=== PATIENT | female | born 1970 | race Caucasian/White ===

== ENCOUNTER 2019-04-19 17:52 | Emergency (ER) | payer BC, SELFPAY ==
--- NOTE | ~2019-04-19 | XR_ITS ---
EXAMINATION: XR ankle LT 2V DATE: 04/19/2019 18:29 INDICATION: Left ankle pain TECHNIQUE: Two views of the left ankle were obtained. COMPARISON: None. FINDINGS: There is subtle irregularity of the tip of the lateral malleolus. Adjacent soft tissue swel ling is noted. The ankle mortise is intact. There is a plantar calcaneal enthesophyte. IMPRESSION: 1. Possible nondisplaced oblique fracture of the medial malleolus below the level of the tibial plafo nd. Reviewed, dictated and finalized at location A. RY MACHINE OPERATOR IMPRESSION: 1. Possible nondisplaced oblique fracture of the medial malleolus below the lev el of the tibial plafond.
--- NOTE | ~2019-04-19 | XR_ITS ---
EXAMINATION: XR tibia fibula LT 2V INDICATION: Left leg pain, initial encounter TECHNIQUE: Two views of the left tibia and fibula are obtained. COMPARISON: None available FINDINGS: There is an acute, traumatic, closed, oblique, mildly comminuted fracture involving the pro ximal shaft of the left fibula. The remaining osseous structures are normal. Soft tissue swelling klaus rounds the fracture. IMPRESSION: 1. Acute proximal shaft fracture of the left fibula. Reviewed, dictated and finalized at location A. T ACCOUNTS SUPERVISOR
[2019-04-19 17:56] VITALS: BP 119/67; PULSE 95; RESP 16; TEMP 36.9; O2SAT 98
--- NOTE | 2019-04-19 18:00 | ED.LOWEXIN ---
HPI - Extremity Injury (Lower) General Chief Complaint: Extremity Injury, Lower Stated Complaint: left leg injury Time Seen by Provider: 04/19/19 17:59 Source: patient Mode of arrival: ambulatory Limitations: no limitations History of Present Illness HPI Narrative: The pt is a 48 y/o female who presents to the ED with c/o LLE pain that began 1 hour ago. The pt states that she fell and is now having trouble bearing weight on her lt leg. The pain radiates from her upper lt garcia down to her lt ankle. The pain is present with bending her knee or ankle and is aggravated with walking and weight bearing. She currently rates her pain a 5/10. complaint: other (LLE pain) Onset (ago): hour(s) (1) Severity scale (1-10): 5 Exacerbating factors: weight bearing and other (walking) Other symptoms: none Related Data Allergies Allergy/AdvReac Type Severity Reaction Status Date / Time No Known Allergies Allergy Verified 04/19/19 18:13 Review of Systems Review of Systems: All systems reviewed & are unremarkable except as noted in HPI and below Musculoskeletal: Musculoskeletal: Reports other (LLE pain) PMFSH Past Medical History Medical History (Updated 04/19/19 @ 19:37 by Jayy Marinelli MD) Healthy adult Surgical History Surgical History (Updated 04/19/19 @ 18:10 by Olga Puga) No pertinent past surgical history Social History Social History (Updated 04/19/19 @ 18:10 by Olga Puga) Smoking status: Never smoker Gender identity (if verbalized by the patient): Female Exam Const: General: healthy appearing and no acute distress Nutritional Appearance: well nourished HENMT: Mouth: Yes lip normal and Yes moist mucous membranes Eyes: Conjunctivae: conjunctivae normal Pupils: Equal, round and reactive pupils present Resp: Effort & Inspection: normal respiratory effort Auscultation: clear to auscultation bilaterally Cardio: Rate: regular rate Rhythm: regular rhythm Heart sounds: no murmurs GI: GI Palp: Yes Soft to palpation and No Tenderness to palpation present (GI) Auscultation: normal bowel sounds Back/Spine/Pelvis: Back: other (full ROM) Skin: General skin exam: normal color, dry skin and other (warm) Extrem: Other: swelling over lt lateral malleolus with tenderness and tenderness over proximal fibula Psych: Mental Status: mental status grossly normal Affect: normal affect Course Vital Signs Vital signs: Vital Signs Temperature 36.9 C 04/19/19 17:56 Pulse Rate 95 04/19/19 17:56 Respiratory Rate 16 04/19/19 17:56 Blood Pressure 119/67 04/19/19 17:56 Pulse Oximetry 98 04/19/19 17:56 Temperature 36.9 C 04/19/19 17:56 Pulse Rate 95 04/19/19 17:56 Respiratory Rate 16 04/19/19 17:56 Blood Pressure 119/67 04/19/19 17:56 Pulse Oximetry 98 04/19/19 17:56 Procedures Orthopedic Splinting/Casting Injury #1: Splinting/Casting Date: 04/19/19 Side: left Lower Extremity Injury Location: lower leg Splint: customized in ED OCL: short leg Pre-Procedure Neuro Vascular Exam: normal Post-Procedure Neuro Vascular Exam: normal Other Orthopedic Equipment: crutches MDM - Extremity Injury (Lower) Imaging Data Radiologist's impression: ITS Impressions Ankle X-Ray 04/19/19 18:31 IMPRESSION: 1. Possible nondisplaced oblique fracture of the medial malleolus below the level of the tibial plafond. Tibia/Fibula X-Ray 04/19/19 18:33 IMPRESSION: 1. Acute proximal shaft fracture of the left fibula. Discharge Plan Discharge Clinical Impression: Closed Maisonneuve fracture of left fibula Qualifiers: Encounter type: initial encounter Fracture alignment: nondisplaced Qualified Code(s): S82.865A - Nondisplaced Maisonneuve's fracture of left leg, initial encounter for closed fracture Patient Disposition: Home, Self-Care Condition: Stable Instructions: Leg Fracture (ED) Prescri
== END 2019-04-19 20:06 | disposition home or self-care (01) ==
PROVIDERS: Emergency Provider Emergency Medicine
DX: S82.865A Nondisplaced Maisonneuve's fracture of left leg, initial encounter for closed fracture (principal); W19.XXXA Unspecified fall, initial encounter
CPT/HCPCS: 29515; 73590; 73600; 99284

== ENCOUNTER 2019-08-30 00:56 | Emergency (ER) | payer BC, SELFPAY ==
--- NOTE | ~2019-08-30 | CT_ITS ---
EXAMINATION: CT abdomen pelvis w con EXAM DATE: 08/30/2019 01:59 INDICATION: Left lower quadrant abdominal pain. TECHNIQUE: Spiral CT of the abdomen and pelvis was performed following intravenous injection of 100 m L Omnipaque 350. Axial, coronal and sagittal images were reviewed. The dose-length product (DLP) fo r this examination was 1162.24 mGy-cm. The exposure was tailored according to patient size (auto mA exposure control), and iterative reconstruction (ASIR) was used as additional dose reduction techniqu e. There is no prior study for comparison. FINDINGS: The liver, spleen, adrenal glands and pancreas are unremarkable. There are gallstones with in an otherwise unremarkable gallbladder. No evidence of obstructive biliary disease. Portal and sp lenic veins are patent. Kidneys enhance symmetrically. There is no hydronephrosis. Fibroid uterus . The bladder is unremarkable. There is no retroperitoneal or pelvic lymphadenopathy. There is mild scattered colonic diverticulosis with moderate amount of inflammation of the descending /sigmoid colonic junction, consistent with acute uncomplicated diverticulitis. The appendix is normal . The stomach and small bowel are unremarkable. There is expected amount of colonic stool. No bernie e intraperitoneal gas. The heart is normal in size. There are no pericardial or pleural effusions. The lung bases are unremarkable. There are no osteoblastic or osteolytic lesions identified. IMPRESSION: 1. Acute uncomplicated descending/sigmoid colonic diverticulitis. 2. Fibroid uterus. 3. Cholelithiasis. Reviewed, dictated and finalized at location A.
[2019-08-30 01:00] VITALS: BP 148/86; PULSE 94; RESP 16; TEMP 37.1; O2SAT 98
--- NOTE | 2019-08-30 01:18 | ED.ABDPAIN ---
HPI - Abdominal Pain General Chief Complaint: Abdominal Pain Stated Complaint: lower abd pain Time Seen by Provider: 08/30/19 01:07 Source: RN notes reviewed History of Present Illness HPI narrative: Patient presents emergency department from home for left lower quadrant abdominal pain. States the pain began 1 day ago. The pain is described as sharp and stabbing does not radiate. Denies any associated symptoms. Denies take any previous pain medication. Denies any fevers or chills nausea vomiting diarrhea dysuria Related Data Allergies Allergy/AdvReac Type Severity Reaction Status Date / Time No Known Allergies Allergy Verified 04/19/19 18:13 Review of Systems Review of Systems: Narrative: Gen.: Denies fevers or chills ENT: Denies congestion Respiratory: Denies shortness of breath or cough CV: Denies chest pain or palpitations See HPI denies burning, urgency, frequency or hematuria Musculoskeletal: Denies back pain or muscle pain Neuro: Denies numbness, tingling, weakness or focal weakness Skin: Denies rash Except as documented, all other systems reviewed and negative PMFSH Past Medical History Medical History Healthy adult Left fibular fracture Surgical History Surgical History No pertinent past surgical history Social History Social History Smoking status: Never smoker Gender identity (if verbalized by the patient): Female Exam Narrative: Exam Narrative: APPEARANCE: No acute distress, nontoxic, resting in bed HEENT: Normocephalic, atraumatic, OMM RESPIRATORY: No respiratory distress, clear to auscultation bilaterally with no rhonchi wheezing or rales CARDIOVASCULAR: RRR s murmur ABDOMINAL: Soft, nondistended, tender to palpation left lower quadrant, no tenderness left upper quadrant, right upper quadrant right lower quadrant, no rebound or guarding MUSCULOSKELETAl: Moves all extremities. No clubbing, cyanosis or edema. NEURO: Awake and alert. Following commands, speech normal, no focal deficits SKIN:: Warm, dry. Normal Color PSYCHIATRIC: Normal affect/mood Course Course Emergency Course: Patient states that they are feeling much better at this time. States abdominal pain has improved. Repeat abdominal exam shows the patient's abdomen to be soft with no surgical abdomen present. Discussed with patient results of workup and diagnosis. Discussed need for follow-up with primary care physician, reasons to return to the emergency department in proper use of medication. Patient understands and agrees to current treatment plan. Did discuss with patient CT results showing gallstones. States she is had a colonoscopy by GI specialist and on before Vital Signs Vital signs: Vital Signs Temperature 98.7 F 08/30/19 01:00 Pulse Rate 94 08/30/19 01:00 Respiratory Rate 16 08/30/19 01:00 Blood Pressure 148/86 H 08/30/19 01:00 Pulse Oximetry 98 08/30/19 01:00 Temperature 98.7 F 08/30/19 01:00 Pulse Rate 94 08/30/19 01:00 Respiratory Rate 16 08/30/19 01:00 Blood Pressure 148/86 H 08/30/19 01:00 Pulse Oximetry 98 08/30/19 01:00 MDM - Abdominal Pain MDM Narrative Medical decision making narrative: Patient's abdomen is soft without significant pain or signs of surgical abdomen on serial exams. Lab and x-ray evaluations are reviewed and patient is felt to be a reasonable candidate for outpatient management. Patient was instructed as to limitations of x-ray and laboratory evaluation and encouraged to return to ED or primary physician for repeat exam in 12 hours if continued or worsening pain Lab Data Result diagrams: 08/30/19 01:25 08/30/19 01:25 Labs: Lab Results 08/30/19 08/30/19 08/30/19 Range/Units 01:25 01:25 01:33 WBC 14.4 H (4.5-10.0) K/mm3 RBC 4.60 (4.2-5.4) M/mm3
[2019-08-30 01:31] LABS: Basophils Absolute Auto 0.1 K/mm3 (0.0-0.1); Basophils Percent Auto 0.4 % (0.2-1.2); Eosinophils Absolute Auto 0.2 K/mm3 (0-0.3); Eosinophils Percent Auto 1.2 % (0-4.4); Hematocrit 43.2 % (37.0-47.0); Hemoglobin 14.5 g/dL (12.0-15.0); Immature Granulocyte Absolute 0.04 K/mm3 (0.00-0.031); Immature Granulocyte Percent A 0.3 % (0-0.5); Lymphocytes Absolute Auto 2.47 K/mm3 (0.9-3.2); Lymphocytes Percent Auto 17.2 % (18.3-44.2); Mean Corpuscular HGB Conc 33.6 g/dl (32-36); Mean Corpuscular Hemoglobin 31.5 pg (26-34); Mean Corpuscular Volume 93.9 fl (80-100); Mean Platelet Volume 11.2 fl (7.4-10.4); Monocytes Absolute Auto 1.2 K/mm3 (0.1-0.6); Monocytes Percent Auto 8.1 % (2.6-8.5); Neutrophils Absolute Auto 10.5 K/mm3 (1.3-6.7); Neutrophils Percent Auto 72.8 % (45.5-73.1); Platelet Count Result 223 k/mm3 (150-375); Red Cell Distribution Width 13.4 % (11.5-14.5); White Blood Count 14.4 K/mm3 (4.5-10.0)
[2019-08-30] MEDS: SODIUM CHLORIDE 0.9% IV 1,000 ML 999 ML IV CONT (01:37)
[2019-08-30] MEDS: KETOROLAC 30 MG/ML VIAL (*BKC) IV PUSH (01:38)
[2019-08-30 01:44] LABS: Alanine Aminotransferase 25 U/L (4-35); Albumin Level 4.2 g/dL (3.5-5.1); Alkaline Phosphatase 78 U/L (38-126); Aspartate Amino Transferase 25 U/L (14-36); Bilirubin,Total 0.3 mg/dL (0.2-1.3); Blood Urea Nitrogen 16 mg/dL (7-17); Calcium 8.8 mg/dL (8.4-10.2); Carbon Dioxide 28 mmol/L (22-30); Chloride 104 mmol/L (98-107); Estimated Glomerular Filt Rate > 60; Glucose 130 mg/dL (65-105); Lipase 63 U/L (23-300); Sodium 136 mmol/L (137-145)
[2019-08-30 01:58] LABS: Add Urine Microscopic? YES; Appearance Urine Clear (Clear); Bacteria Urine Trace /hpf; Bilirubin Urine Negative (Negative); Blood Urine Negative (Negative); Color Urine Yellow (Yellow); Glucose Urine UA Negative (Negative); Ketones Urine Negative (Negative); Leukocyte Esterase Ur 2+ LEU/UL (Negative); Mucus Urine Rare /lpf; Nitrate Urine Negative (Negative); Protein Urine Negative (Negative); Specific Grav Ur 1.014 (1.001-1.035); Squamous Epithelial Cell Urine Many /hpf (Few); Urobilinogen Urine Negative mg/dL (<2.0)
[2019-08-30 02:54] VITALS: BP 145/66; PULSE 85; RESP 18; O2SAT 96
[2019-08-30] MEDS: AMOXICILLIN/CLAVULANATE K 875-125 MG TAB 1 TABLET PO (02:54)
== END 2019-08-30 02:56 | disposition home or self-care (01) ==
PROVIDERS: Emergency Provider Emergency Medicine
DX: K57.32 Diverticulitis of large intestine without perforation or abscess without bleeding (principal)
CPT/HCPCS: 36415; 74177; 80053; 81001; 81025; 83690; 85025; 87086; 96361; 96374; 99284; A9270; J1885; J7030; Q9967

== ENCOUNTER → 2023-01-08 14:17 | Outpatient (CLI) | payer BC, SELFPAY ==
--- NOTE | ~2023-01-08 | MR_ITS ---
MRI of the left ankle Clinical history: Instability Technique: Coronal proton-density and proton-density fat-sat images, axial proton-density and proton- density fat-sat images, and sagittal proton-density and proton-density fat-sat images were acquired. Findings: Syndesmotic ligaments are intact. Anterior and posterior talofibular ligaments are probably intact, though somewhat thinned. Calcaneofibular ligament is intact. Deltoid ligament is intact. Suggestion of mild thinning of the tibialis posterior tendon, with fluid distention of the tendon she ath. Flexor hallucis longus and flexor digitorum longus tendons are intact. Peroneal tendons are inta ct, mild fluid distention of the tendon sheaths, especially peroneus longus distally. Anterior extens or tendons and Achilles tendon are intact. There is no definite osteochondral lesion of the talar dome. There are minimal degenerative changes a t the tibiotalar joint and subtalar articulations. There is mild degenerative change of the talonavic ular articulation. There are mild degenerative changes of the tarsometatarsal joints. No suspicious b one marrow signal abnormality seen. Plantar fascia is intact. Small tibiotalar joint effusion present. There is mild edematous change in the sinus Tarsi. Impression: Somewhat thickened appearance of the anterior and posterior talofibular ligaments. Findings could ref lect sequela of chronic sprain. No acute ligament injury evident. Tenosynovitis of the tibialis posterior and peroneal tendon sheaths. Mild thinning of the tibialis posterior tendon, which could reflect atrophic type partial tearing. Mild polyarthritis at the ankle/hindfoot, as detailed above. Nonspecific edematous change in the sinus Tarsi. Correlate for sinus Tarsi syndrome. Reviewed, dictated and finalized at [facility]. AL WORK INSTRUCTOR Impression: Somewhat thickened appearance of the anterior and posterior talofibular ligamen ts. Findings could reflect sequela of chronic sprain. No acute ligament injury evident. Tenosynovitis of the tibialis posterior and peroneal tendon sheaths. Mild thinning of the tibialis posterior tendon, which could reflect atrophic ty pe partial tearing. Mild polyarthritis at the ankle/hindfoot, as detailed above. Nonspecific edematous change in the sinus Tarsi. Correlate for sinus Tarsi synd bria.
== END ==
PROVIDERS: PCP Internal Medicine Infectious Disease; Visit Provider Orthopaedic Surgery
DX: M25.372 Other instability, left ankle (principal); S93.492A Sprain of other ligament of left ankle, initial encounter; X58.XXXA Exposure to other specified factors, initial encounter
CPT/HCPCS: 73721

== ENCOUNTER 2024-01-27 00:09 | Day surgery (SDC) | payer BC, SELFPAY ==
--- NOTE | 2024-01-15 12:37 | P.HP_ITS ---
H&P: HPI History of Present Illness Date/Time: 01/15/24 12:37 Chief Complaint: Left foot and ankle pain, deformity Narrative: 53-year-old woman who injured her left ankle 3 years ago. Sustained fibular fracture with injury to the medial soft tissues. Progressive flatfoot deformity and pain. Difficulty activity and weight-bearing. Has failed treatment with bracing, custom brace, activity modifications, therapy, anti-inflammatories. Presents for operative treatment. Review of Systems Constitutional: Constitutional: Denies fever(s) Eyes: Eyes: Denies blurry vision ENT: Reports Normal hearing present Cardiovascular: Cardiovascular: Denies chest pain and Denies dyspnea Respiratory: Respiratory: Denies dyspnea and Denies wheezing Gastrointestinal: Gastrointestinal: Denies abdominal pain Genitourinary: Genitourinary: Denies urinary urgency Musculoskeletal: Musculoskeletal: Reports as per HPI and Denies numbness Integumentary/Breasts: Skin/Breast: Denies changing lesions and Denies sores Neurologic: Reports Normal hearing present, Denies behavioral changes, Denies confusion, Denies numbness and Denies convulsions Psychiatric: Psychiatric: Denies behavioral changes, Denies confusion and Denies hallucinations Endocrine: Endocrine: Denies heat intolerance Hematologic/Lymphatic: Hematologic/Lymphatic: Denies easy bleeding Allergic/Immunologic: Allergic/Immunologic: Denies wheezing PMFSH Past Medical History Medical History Healthy adult Left fibular fracture Pes planovalgus Posterior tibial tendon dysfunction (PTTD) of left lower extremity Spring ligament tear Surgical History Surgical History No pertinent past surgical history Family History Family History Mother Asthma Diabetes mellitus Father Parkinsons Social History Social History Smoking status: Never smoker Lack of Transportation: No Lack of Food: Never True Current Housing: I Have Housing Concerned About Future Housing: No Difficulty Paying Gas/Electric Bills: No Difficulty Paying for Meds: No Currently Unemployed: No Education: Master's Degree or Higher Difficulty w/ Childcare or Family Care: No Gender identity (if verbalized by the patient): Female Meds Home Medications and Allergies Home Medications Medication Instructions Recorded Confirmed Type No Home Medications 09/11/21 12/24/23 History Allergies Allergy/AdvReac Type Severity Reaction Status Date / Time No Known Allergies Allergy Verified 12/24/23 07:42 Exam Const: General: healthy appearing; No in distress or confusion Orien tation/consciousness: oriented to person, oriented to place, oriented to time and No confusion HENMT: Head: normal to inspection, normocephalic and atraumatic Eyes: Conjunctivae: conjunctivae normal Sclera: sclerae normal Neck: Neck: supple and nontender Resp: Effort & Inspection: normal respiratory effort and no audible wheezes Cardio: Rate: regular rate Rhythm: regular rhythm Skin: General skin exam: no rashes or lesions noted Neuro: General: oriented to person, oriented to place, oriented to time and No confusion Extrem: Right upper extremity: normal to inspection Left upper extremity: normal to inspection Right lower extremity: normal to inspection, normal capillary refill, ankle Details: no tenderness and foot Details: vascular exam Details: normal capillary refill and motor-sensory exam Details: light-touch normal; no tenderness Left lower extremity: ankle Details: tenderness Location: of the medial malleolus, swelling Details: medially (mild) and abnormal ROM ( ankle DF 0?, PF 40?, Inv 15?, Ev 20?) and foot Details: abnormal to inspection ( Moderate flexible pes planovalgus, moderate heel valgus with standing) Details: a deformity; not erythematous, tenderness ( posterior tibial tendon and medial naviculum) Location: of the medial foot, toes with normal ROM, vascular exam Details: dorsalis pedis pulse present and normal capillary refill and motor-sensory exam light-touch normal Psych: Affect: normal affect Assessment and Plan Assessment and plan (1) Spring ligament tear: Qualifiers: Encounter type: subsequent encounter Laterality: left Qualified Code (s): S93.692D - Other sprain of left foot, subsequent encounter Code(s): S93.699A - Other sprain of unspecified foot, initial encounter Status: Acute (2) Posterior tibial tendon dysfunction (PTTD) of left lower extremity: Code(s): M76.822 - Posterior tibial tendinitis, left leg Status: Acute Assessment and Plan: Discussed nonoperative and operative treatment options with the patient. Risks and benefits of each as well as alternatives were reviewed. All of the patient's questions were answered. The risks of surgery reviewed including but not limited to: Neurovascular damage, wound complication, infection, blood clot, pulmonary embolus, stroke, myocardial infarction, and anesthetic risks up to and including . Continued pain and possible dysfunction were explained. Specific risks of the procedure including later recurrence of deformity. No guarantees were offered. If hardware used, discussed risk of failure/ breakage and possible need for removal. If complications occur, the patient understands the need for further treatment, possible further surgery. Patient verbalizes understanding and wishes to proceed. PLAN: Left foot reconstruction with posterior tibial and spring ligament reconstruction, double calcaneal osteotomy, Achilles tendon lengthening (3) Pes planovalgus: Code(s): Q66.6 - Other congenital valgus deformities of feet Status: Acute (4) Left ankle instability: Code(s): M25.372 - Other instability, left ankle Status: Acute
[2024-01-21 13:37] VITALS: BMI 30.5
--- NOTE | 2024-01-21 13:50 | PC.NURSE ---
Report to the Outpatient Waiting Room, entrance under the green pavilion located off [facility], at time _0600am on date __01/27/24 . Planned Procedure Time: ___07:30am .? Time changes happen often and if your time is changed the preop area will call you the afternoon before. - You and your visitor will be asked to self-screen and do not enter if you have any COVID symptoms. Please call surgeon if you need to reschedule. - A mask is optional within the hospital at this time. Patients may have clear liquids (water, carbonated beverages, clear teas, apple juice) until 3 hours prior to surgery with a maximum of 20 ounces. - No food from midnight until time of surgery and no smoking. This includes no chewing gum, candy or mints.(04:30am) Take only the following medications with a SIP of water on the morning of surgery: _None DO NOT STOP ANY OF YOUR OTHER PRESCRIPTION MEDICATIONS PRIOR TO SURGERY EXCEPT THE FOLLOWING Medications to discontinue per physician Hold all vitamins, supplements, herbs and probiotics for 3 days prior per Anesthesia. Date to take last dose___01/23/24 Please no make-up, nail thai, hairspray, perfume, deodorant, or body powder the day of surgery.? No jewelry (including any body piercings) or valuables the day of surgery, leave them at home.? Please take a shower or bath the night before, or the morning of, surgery with an antibacterial soap.? Wear comfortable, loose fitting clothing.? - Jewelry must be removed prior to entering the operating room.? Rings and piercings that are not removed may be cut off. - The hospital will not accept responsibility for valuables.? - Please leave all valuables, including medications, at home the day of surgery. If you are going home after surgery, a licensed feeder driver must drive you home.? - NO public transportation without another adult if you receive anesthesia. - We recommend that an adult stay with you for 24 hours following discharge. - We also recommend that you do not drive, make important decision, drink alcoholic beverages, or take any drugs that were not prescribed by your health care provider for at least 24 hours after your discharge time. Follow any additional instructions given to you from your surgeon. Telephone instructions given to __Patient and asked if any additional questions and then verbalized understanding. Patient advised to call surgeon office or pre surgery nurse liaison [phone] if any additional questions.
[2024-01-27] VITALS (8 sets, daily range): BP systolic 127–141; BP diastolic 77–86; PULSE 85–99; RESP 12–16; TEMP 36.2–37; O2SAT 96–100
--- NOTE | ~2024-01-27 | XR_ITS ---
EXAMINATION: XR surgery orthopedic DATE: 01/27/2024 10:06 INDICATION: Left ankle instability. TECHNIQUE: 7 intraoperative fluoroscopic views of left foot were obtained. I wasn't present. Fluorosc opy exposure time was 39 seconds. COMPARISON: Left foot radiographs 12/24/2023 FINDINGS: Alignment is normal. No fracture. There are osteotomies of the calcaneus with internal fixa tion with screws and staple. There is mild midfoot osteoarthritis. Skin sofi are noted. IMPRESSION: 1. Osteotomies of the calcaneus with internal fixation. Reviewed, dictated and finalized at location A. ER INTERN
[2024-01-27] MEDS: ACETAMINOPHEN 500 MG TABLET 1000 MG PO (06:40)
[2024-01-27] MEDS: KETOROLAC 15 MG/ML VIAL (*BKC) IV PUSH (06:40)
[2024-01-27] MEDS: LACTATED RINGERS 1,000 ML 30 ML IV CONT ×2 (06:40→10:29)
--- NOTE | 2024-01-27 06:48 | WPDHPUPDATE1 ---
History and Physical Update Update Date/Time: 01/27/24 06:48 History and Physical has been reviewed, including an updated exam of the patient. There are NO changes in the patient's condition. Risks, benefits, and alternatives have been discussed and questions answered. Patient agrees to proceed with procedure.
--- NOTE | 2024-01-27 07:06 | WPDANESEPPF ---
Anes - Initial Pre Proc Eval Procedure: Operation Date: 01/27/24 07:30 Proposed Procedures p Left Double Calcaneal Osteotomy, Posterior Tibial and Spring Ligament Reconstruction, Achilles Lengthening - Michael Drummond MD Date/Time: 01/27/24 07:06 Surgeon: Michael Drummond MD Pre Op Diagnosis: Lt Posterior Tibial Tendon Dysfunction Patient Data Age: 53 Gender: F Height: 1.85 m Weight: 105 kg Last Vital Signs Temp 97.2 F L 01/27/24 06:40 Pulse 87 01/27/24 06:40 Resp 14 01/27/24 06:40 BP 127/84 01/27/24 06:40 Pulse Ox 99 01/27/24 06:40 O2 Del Method Room Air 01/27/24 06:40 Allergies Allergy/AdvReac Type Severity Reaction Status Date / Time No Known Allergies Allergy Verified 01/27/24 06:55 Home Medications Medication Instructions Recorded Confirmed Type B.animalis-B.bifidum-B.infantis-B.longum 1 tablet PO DAILY 01/21/24 01/27/24 History 10 mg-15 mg tablet,delay rel albuterol sulfate 90 mcg/actuation 1 inh inhalation QID PRN sob 01/21/24 01/21/24 History aerosol inhaler magnesium citrate 125 mg capsule 125 mg PO DAILY 01/21/24 01/27/24 History multivitamin with minerals 1 tablet PO DAILY 01/21/24 01/27/24 History vit I38-pebzosvwf factor-folic 1 tablet PO DAILY 01/21/24 01/27/24 History acid cmb#2 500 mcg-20 mg-800 mcg tablet zinc 100 mg tablet 100 mg PO DAILY 01/21/24 01/27/24 History Patient hx anesthesia problems: none Family hx anesthesia problems: none Results Review: All pre-operative results and documents have been reviewed as part of the pre-operative evaluation. [facility] Past Medical History Medical History Healthy adult Left fibular fracture Pes planovalgus Posterior tibial tendon dysfunction (PTTD) of left lower extremity Spring ligament tear Surgical History Surgical History No pertinent past surgical history Family History Family History Mother Asthma Diabetes mellitus Father Parkinsons Social History Social History Smoking status: Never smoker Alcohol use details: 1 per month Substance use: never Lack of Transportation: No Lack of Food: Never True Current Housing: I Have Housing Concerned About Future Housing: No Difficulty Paying Gas/Electric Bills: No Difficulty Paying for Meds: No Currently Unemployed: No Education: Master's Degree or Higher Difficulty w/ Childcare or Family Care: No Living arrangements: with family Additional living arrangements comments: [place] Gender identity (if verbalized by the patient): Female Spiritual care concerns: No Anes - Eval Final PreProcedure Day of Procedure 01/27/24 07:06 Patient weight: obese Heart: regular rate and rhythm Lungs: clear to auscultation Airway: Mallampati scale Neurological: alert and oriented Last oral intake: >/= 8 hours ASA classification: II Emergent: no Anesthetic plan: proceed Anesthesia type and monitoring: general LMA and standard monitoring Results Review: All pre-operative results and documents have been reviewed as part of the pre-operative evaluation. Asthma, stable of recent. Pt active w no cp or sob. All R/B/A discussed of PNB/GA w pt and her spouse in preop 10. They understand and agree to proceed. Informed Consent: The patient's anesthetic plan and its attendant risks and benefits were discussed with the patient/family/POA. Questions were solicited and answers provided to the satisfaction of the patient/family/POA.
--- NOTE | 2024-01-27 07:36 | WPDANESPNB ---
Anes - Peripheral Nerve Block Date/Time: 01/27/24 07:36 I have discussed with the patient/family/POA the placement of a peripheral nerve block for post-operative pain management, including associated risks, benefits, complications, and side effects. Alternative methods of post-operative analgesia were detailed. Questions were solicited and answers provided to the satisfaction of the patient/family/POA. Time-Out: A pre-procedural Time-Out was completed immediately before starting the procedure and confirmed: Patient Identification, Site, Procedure, Patient Position and the Availability of Requisite Equipment. Clinical Indications: Acute post-operative pain management requested by the operative surgeon. Nerve Block Insertion Note Anes-nerve block: posterior fossa sciatic left and adductor canal left Patient position: supine Skin prep: chlorhexidine Needle: 22 gauge, stimulating, insulated echogenic needle. Needle length: 80 mm Technique: ultrasound Injectate: other (Bupiv 0.5%, 20 mls total, 10 ml post sciatic, 10 mls adductor canal. ) Observations: tolerated well Complications: none Procedure start time:: 720 Procedure end time:: 728
[2024-01-27] MEDS: ceFAZolin 2 GM/D5W 50 ML 2 GM/50 ML BAG IVPB (07:39)
[2024-01-27] MEDS: BUPivacaine HCL 0.5% 10 ML AMP 20 ML INFILTRATE (08:04)
[2024-01-27 08:48] LABS: BEDSIDEPREGUCG Negative (Negative)
--- NOTE | 2024-01-27 10:46 | P.OP_ITS ---
Procedure Note - Detailed Date of Procedure 01/27/24 Pre-op Diagnosis Lt Posterior Tibial Tendon Dysfunction, spring ligament rupture, pes [place] valgus. 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 Her fracture has healed but she has gone on to develop progressive pes [place] valgus of the foot collapse of the arch pain. No improvement conservative treatment including physical therapy, bracing and inserts. Presents for operative treatment. Findings Spring ligament disruption hindfoot instability. Description of Procedure Patient identified in the preoperative holding. Informed consent given. Operative extremity marked. Patient received intravenous antibiotics And a regional anesthetic block by the anesthesia team. Patient brought to the operating room where underwent general anesthetic by anesthesia team. Positioned supine on the operating room table with a soft bump under the ipsilateral hip. Left foot and ankle prepped and draped usual sterile surgical fashion using a ChloraPrep skin solution. Time-out performed confirming the patient, site of the surgery and the plan. Foot ankle exsanguinated and a thigh tourniquet inflated to 250 mmHg. The calcaneus was addressed 1st. An oblique incision made over the lateral posterior aspect with a 15 blade knife. Careful dissection to isolate the neurovascular elements which were protected. Lateral side of the calcaneal tuberosity was dissected and fluoroscopy was used to guide the osteotomy site. Sagittal saw used to make a lateral to medial osteotomy which was completed medially with osteotomes. Posterior tuberosity fragment was then translated medially 1 cm provisionally pinned. Image intensification confirmed alignment fixation was achieved with 4.75 mm cannulated headless screws x2. Image intensification confirmed position and alignment. wound i rrigated and the soft tissue closed with 3-0 Monocryl interrupted suture. Skin repaired with sofi. We then addressed the anterior calcaneus. Longitudinal incision made from the sinus tarsi to the anterior calcaneal tuberosity with 15 blade knife. Hemostasis controlled electrocautery. Peroneal tendons were retracted plantar word in the lateral anterior calcaneus was dissected free. Image intensification again confirmed our osteotomy site and anterior osteotomy was made from lateral to medial leaving a medial cortical hinge of bone. This was then wedged laterally and checked with image intensification for reduction of the talonavicular joint. The wedge was measured an 8 mm allograft bone wedge was then impacted into place and fixed with 11 mm staple. Wound irrigated fascia repaired with 3-0 Monocryl interrupted suture. Subcutaneous tissue repaired with 3-0 Monocryl interrupted suture and skin repaired with sofi. Achilles tendon was then addressed. With the ankle in a dorsiflexed position release of the Achilles at 2 locations performed with 15 blade knife. Good release of the Achilles and increase in ankle dorsiflexion noted. Wounds irrigated and closed with 3-0 Monocryl interrupted suture and sofi. Medial aspect was then addressed. Curvilinear incision made from the medial malleolus to the navicular with 15 blade knife. Hemostasis with. Posterior ti bial tendon sheath was incised in line with skin incision posterior tibial tendon was noted to be intact but was stretched out. Retracting the tendon dorsally the spring ligament was noted to be Torn. 2.75 drill hole was placed in the sustentaculum confirmed the intensification internal brace was anchored into sustentaculum. drill hole placed from dorsal plantar in the medial navicular and the limbs of the internal brace were then brought dorsally and plantar wart through the navicula. Talonavicular joint reduced and the internal brace fixed with the SwiveLock anchor. Image intensification confirmed final reduction of foot and placement of the hardware. the posterior tibial tendon was then advanced into the navicula with 2. Fiber suture to restore tension. Wounds irrigated and the sheath was closed with 0 Vicryl interrupted suture. Subcutaneous tissue repaired with 3-0 Monocryl suture and skin repaired with sofi. Sterile dressings applied follow-up by splint. Patient awoke from anesthesia extubated and taken to recovery room stable condition. All sponge needle and instrument counts were correct at the end the case. Implants 4.75 mm cannulated headless screw x2, internal brace x1. 11 mm dynamic staple. Estimated Blood Loss 10 Tourniquet Time Total Tourniquet Time: 142 Drains No Packing No Pathology None sent Complications None Condition Stable Disposition PACU [facility] Billing Surgery - Charge Forward: Surgery Billing ([id number], [id number], [id number], [id number], [id number])
[2024-01-27] MEDS: ONDANSETRON INJ 4 MG/2 ML VIAL IV PUSH (11:00)
[2024-01-27] MEDS: diphenhydrAMINE HCl INJ 50 MG/ML VIAL 12.5 MG IV PUSH (12:23)
== END 2024-01-27 12:50 | disposition home or self-care (01) ==
PROVIDERS: PCP Internal Medicine Infectious Disease; Visit Provider Orthopaedic Surgery
PROC: (CPT 28300; principal; 2024-01-27 07:30)
DX: S93.492A Sprain of other ligament of left ankle, initial encounter (principal); X58.XXXA Exposure to other specified factors, initial encounter; M67.972 Unspecified disorder of synovium and tendon, left ankle and foot; M21.072 Valgus deformity, not elsewhere classified, left ankle; G89.18 Other acute postprocedural pain; Z79.51 Long term (current) use of inhaled steroids; E66.9 Obesity, unspecified; Z68.30 Body mass index [BMI] 30.0-30.9, adult; Z87.81 Personal history of (healed) traumatic fracture
CPT/HCPCS: 28300; 28200; 27695; 27685; 64445; 64447; 99199; A9270; C1713; J0690; J1100; J1200; J1885; J2003; J2250; J2405; J2704; J3010; J7120

== ENCOUNTER 2024-07-06 08:19 | Outpatient (CLI) | payer BC, SELFPAY ==
--- OUTSIDE RECORDS SUMMARY | 2024-07-06 08:31 | XMS_ITS | Clinical Summary ---
Author Organization [facility] Address [address] [place] [address] Care Team Providers Care Clinical Laboratory Science Professor Name Role Phone Tashi Reilly MD Primary Care Provider [phone] Source Comments [facility],non-owned Affiliates and Associated Physician Practices is amultiple site organization consisting of ambulatory clinics and hospital sitesin [place], [place], [place] and [place]. This disclosure is being madepursuant to the Care Everywhere program and may not contain all information available regarding this patient. Last updated [employer] [facility] Allergies No known active allergies Medications * Be aware that medications may not be up to date on this document. Alwaysverify current medications with the patient. Medication Sig Dispense Quantity Refills Last Filled Start D ate End Date Status MAGNESIUM PO Active Active Problems Problem Noted Date Diagnosed Date Periodic limb movement disorder 12/29/2021 02/14/2023 Overview (02/14/2023): Last Assessment & Plan: We discussed the option of treating her restless legs syndrome. We ordered iron studies (she is still menstruating). Cough variant asthma 10/02/2021 02/14/2023 Overview (02/14/2023): Last Assessment & Plan: She has an albuterol inhaler for occasional use as needed when she is wheezing which is rarely these days once her daughter moved out of the house with her rats. Uterine leiomyoma 04/24/2021 02/14/2023 Urinary frequency 09/01/2020 02/14/2023 Overview (02/14/2023): Last Assessment & Plan: Pre and postvoid urinary bladder volumes were unremarkable. 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 The fibroids might be pressing on her bladder causing some of her symptoms. The trazodone might help her bladder relax a little bit through its anticholinergic side effects. Diverticulitis 08/29/2019 02/14/2023 Overview (02/14/2023): Last Assessment & Plan: Recent colonoscopy was unremarkable. No recent symptoms of diverticulitis. No concerns or complaints. Discussed again importance of high fiber diet. She is to go on low fiber/low fat, liquid diet if diverticulitis symptoms occur and contact us. Pt verbalized understanding. Suspected sleep apnea 09/01/2016 02/14/2023 Overview (02/14/2023): Suspected. Snores, feels unrested when she wakes up. Sleep study negative, but sleep efficiency poor. Last Assessment & Plan: She had a sleep study yesterday which was negative for obstructive sleep apnea. She does snore and has restless legs. Sleep latency was very short, but sleep efficiency was poor. She wakes up easily and has trouble falling back asleep. We discussed all of this today. We reinforced good sleep hygiene. We sent in a trial of trazodone which might help her stay asleep, risks of medication discussed. Class 1 obesity due to exces s calories without serious comorbidity with body mass index (BMI) of 32.0 to 32.9 in adult 09/01/1989 Overview (12/16/2023): Obesity Family History Medical History Relation Name Comments Parkinson's Disease Father Alzheimer's Disease Maternal Grandfather Cancer - Ovarian Maternal Grandmother Diabetes; unknown type Mother Cancer - Skin, Melanoma Paternal Grandfather None Known Paternal Grandmother Relation Name Status Comments Father Alive Maternal Grandfather Maternal Grandmother Mother Alive Paternal Grandfather Paternal Grandmother Social History Tobacco Use Types Packs/Day Years Used Date Smoking Tobacco: Never Passive Smoke Exposure: Never Smokeless Tobacco: Never Tobacco Cessation:Counseling Given: Not Answered Alcohol Use Standard Drinks/Week Comments Yes 0 (1 standard drink = 0.6 oz pur e alcohol) PHQ-2 Answer Date Recorded Patient Health Questionnaire-2 Score 0 12/09/2023 Comments Unknown Sex and Gender Information Value Date Recorded Sex Assigned at Not on file 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 Gender Identity Not on file Sexual Orientation Not on file Last Filed Vital Signs Vital Sign Reading Time Taken Comments Blood Pressure 128/78 12/16/2023 10:39 AM CDT Pulse - - Temperature - - Respiratory Rate - - Oxygen Saturation - - Inhaled Oxygen Concentration - - Weight 88.5 kg (195 lb) 12/16/2023 10:39 AM CDT Height 185.4 cm (6' 1 ) 12/16/2023 10:39 AM CDT Body Mass Index 25.73 12/16/2023 10:39 AM CDT Plan of Treatment Health Maintenance Due Date Last Done Comments COLOGUARD (AGES 45-75) - COLON CA SCREENING [address] COLONOGRAPHY - COLON CA SCREENING 1971 FLEX SIG - COLON CA SCREENING 1971 LIPID TESTING 1971 PAP SMEAR 1971 HIV SCREENING 11/20/1986 HEPATITIS C SCREENING 11/16/1989 DTAP/TDAP/TD VACCINES (1 - Tdap) 11/20/1990 HEPATITIS B VACCINE (1 of 3 - 19+ 3-dose series) 11/20/1990 PNEUMOCOCCAL VACCINE 50+ (1 of 2 - PCV) 11/20/1990 ZOSTER VACCINE (1 of 2) 11/20/2021 MAMMOGRAM 01/17/2023 01/17/2021, 01/02, 12/18/2019, Additional history exists SCREENING FOR DIABETES 02/14/2023 FIT - COLON CA SCREENING 03/26/2023 03/26/2022 COVID-19 VACCINE (3 - 2023- season) 2023 05/21/2020, 04/23/2020 DEPRESSION SCREENING 03/04/2024 03/20/2023 INFLUENZA VACCINE (Season Ended) 2024 11/15/2021, 11/08/2020, 11/13/2019, Additional history exists COLONOSCOPY - COLON CA SCREENING 11/17/2029 11/18/2019 Colorectal Cancer Screening 11/17/2029 HIB VACCINE Aged Out No longer eligi ble based on patient's age to complete this topic HPV VACCINE Aged Out No longer eligi ble based on patient's age to complete this topic MENINGOCOCCAL (Group B) VACCINE SHARED DECISION-MAKING Aged Out No longer eligible based on patient's age to complete this topic MENINGOCOCCAL GROUPS A/C/Y/W VACCINE Aged Out No longer eligible based on patient's age to complete this topic [place] [address] [employer]THE[employer] Member Subscriber Plan / Payer (Ef fective 2018-Present) Name:Micheline Galvan Relation to Subscriber:Self Name:Micheline Galvan Payer ID:[id number] (NAIC) Type:PPO Address: [place] [id number] ANTHEM Care Teams Clinical Laboratory Science Professor Relationship Specialty Start Date End Date Tashi Reilly MD [address] [place] [address] [phone] (work) PCP - General Infectious Disease 02/14/23
--- OUTSIDE RECORDS SUMMARY | 2024-07-06 08:31 | XMS_ITS | Encounter Summary ---
Author Organization [facility] Address [address] [place] [address] Care Team Providers Care Field Application Engineer Name Role Phone Tashi Reilly MD Primary Care Provider [phone] Mary Crump NP Unavailable [phone] Reason for Referral * Consultation (Routine) - Pending Review Specialty Diagnoses / Procedures Referred By Olga bryant Referred To Contact Otolaryngology Diagnoses Tinnitus of both ears Tashi Reilly MD [address] [address] Phone: tel: fax: Jeanette Reese MD [address] [place] [address] Phone: tel: fax: Referral ID Status Reason Start Date Expiration Date Visits Requested Visits Authorized [id number] Pending Review Specialty Services Required 06/10/2024 07/10/2025 12 12 Question Answer Please select the performing region: External Order [171] To provider: JEANETTE REESE [[id number]] # of visits: 12 Comments Please contact patient to schedule an appointment. Thank you. Dr.Joel Reese Encounter Details Date Type Department Care Team (Late st Contact Info) Description 06/10/2024 Telephone [facility] [address] [place] [address] Tashi Reilly MD [address] [place] [address] Social History Tobacco Use Types Packs/Day Years Used Date Smoking Tobacco: Never Smokeless Tobacco: Never Alcohol Use Standard Drinks/Week Comments Yes 0 (1 standard drink = 0.6 oz pur e alcohol) PHQ-2 Answer Date Recorded PHQ-2 Total Score (If total score is 3 or more points, staff should administer the PHQ-9) 0 01/03/2024 Comments No Sex and Gender Information Value Date Recorded Sex Assigned at Not on file 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 Pt states couldn't get her in until August. Referral faxed to . documented in this encounter Plan of Treatment Scheduled Referrals Name Type Priority Associated Diagnoses Order Schedule Ambulatory referral to ENT Outpatient Referral Routine Tinnitus of both ears Expected: 06/10/2024 (Approximate), Expires: 06/10/2025 documented as of this encounter Visit Diagnoses Diagnosis Tinnitus of both ears- Primary Unspecified tinnitus documented in this encounter Care Teams Field Application Engineer Relationship Specialty Start Date End Date Tashi Reilly MD [address] [place] [address] PCP - General 06/01/16 Mary Crump NP [address] [place] [address] Nurse Practitioner Obstetrics and Gynecology 12/17/23 documented as of this encounter
--- OUTSIDE RECORDS SUMMARY | 2024-07-06 08:31 | XMS_ITS | Referral Summary ---
Author Organization [facility] [address] Address [address] [place] [address] Care Team Providers Care Geospatial Program Management Officer Name Role Phone Tashi Reilly MD Primary Care Provider [phone] Mary Crump NP Unavailable [phone] Encounters Date Type Department Care Team Description 06/10/2024 Telephone [facility] [address] [place] [address] [phone] Tashi Reilly MD 06/05/2024 2:30 PM CDT Office Visit [facility] [address] [place] [address] [phone] Mickey Matta NP Tinnitus of both ears (Primary Dx); Bruxism (teeth grinding); Class 1 obesity due to excess calories without serious comorbidity with body mass index (BMI) of 30.0 to 30.9 in adult; Need for hepatitis B screening test 05/16/2024 Results Follow-Up [facility] [address] [place] [phone] Tashi Reilly MD 05/13/2024 8:11 AM CDT - 05/13/2024 11:59 PM CDT Hospital Encounter [facility] [address] [place] [address] Post-menopause Discharge Disposition: Discharge to home or self care 05/13/2024 8:11 AM CDT - 05/13/2024 11:59 PM CDT Hospital Encounter [facility] [address] [place] [address] Screening mammogram, encounter for Discharge Disposition: Discharge to home or self care 05/05/2024 Orders Only [facility] [address] [place] [phone] Scanning, Provider from Last 3 Months Allergies No known active allergies Medications MAGNESIUM ORAL Take by mouth. Active albuterol HFA (PROVENTIL HFA,VENTOLIN HFA,PROAIR HFA) 90 mcg/actuation inhaler INHALE 2 PUFFS BY MOUTH EVERY 6 HOURS NEEDED FOR WHEEZING 18 g 3 04/30/2022 Active pediatric multivit 61-D3-vit K 1,500-800 unit-mcg capsule Take 1 tablet by mouth daily 12/31/2022 Active Estring 2 mg (7.5 mcg /24 hour) vaginal ring INSERT 1 RING IN VAGINA EVERY 3 MONTHS 05/04/2024 Active CombiPatch 0.05-0.14 mg/24 hr 05/24/2024 Active Active Problems Problem Noted Date Diagnosed Date Tinnitus of both ears 06/05/2024 Assessment & Plan (06/05/2024 3:44 PM CDT): Acute, Unstable, and New Hx relative to dx: Teeth grinding No documented history of significant anxiety Relative exam findings today: Bilateral ear exam largely unremarkable Current meds: None Today's Plan: No medications initiated today ENT and audiology consults today Lab orders: none Imaging orders: none Discussed: Various etiologies of tinnitus and definitive diagnosis will require deducing and further testing Need for hepatitis B screening test 06/05/2024 Bruxism (teeth grinding) 06/05/2024 Assessment & Plan (06/05/2024 3:52 PM CDT): Chronic, progressive, not at goal Follows with dentistry who recommended she sees Orthodontics Differential diagnoses: Anxiety v anatomical structure issue Hx relative to dx: None Relative exam findings today: No broken teeth noted Current meds: None Today's Plan: No medications initiated today Recommended following up with dentistry or 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 Left dorsal pedal pulse is not detected (history of prior left ankle injury, surgery scheduled soon), right dorsal pedal pulse is trace to 1+. Posterior tibial pulses are strong and clinical perfusion is normal with no temperature deficit, color change, ischemic ulceration or gangrene. We discussed the finding and options for further evaluation starting with ABIs which the patient declines at this time. She wants to monitor the situation and follow-up in one year. Periodic limb movement disorder 12/29/2021 Assessment & Plan (01/03/2024 3:12 PM CDT): Lab Results Component Value Date IRON 88 12/29/2021 TIBC 272 12/29/2021 FERRITIN 99 12/29/2021 Iron studies were normal when last checked. She is no longer menstruating. We will monitor clinically. Assessment & Plan (12/30/2021 7:56 PM CDT): We discussed the option of treating her restless legs syndrome. We ordered iron studies (she is still menstruating). Other insomnia 11/28/2021 Assessment & Plan (12/31/2022 4:08 PM CDT): She continues to have early wakening and trouble falling back asleep. It usually happens when she gets up to urinate. She tried trazodone which we prescribed previously, but it was not helping so she stopped it. She says symptoms are not bad enough to warrant any further intervention at this time. We again reinforced good sleep hygiene. Assessment & Plan (12/29/2021 4:00 PM CDT): She will try trazodone for her poor sleep efficiency. Assessment & Plan (12/12/2021 10:44 AM CDT): She is been having trouble with insomnia. It has been going on for awhile, possibly as long as five years. She falls asleep without difficulty, but wakes frequently at night and sometimes has trouble falling back asleep. Last night she only got 6 hours. She wakes up to urinate 3-5 times a night, denies dysuria or hematuria. During the daytime, she urinates about every 2-3 hours. She could have obstructive sleep apnea. She snores. She wakes up feeling unrested. We discussed further workup and plan a sleep study as well as pre- and post-void urine volumes and urinalysis. We will see her back in one month. Cough variant asthma 10/02/2021 Assessment & Plan (01/07/2024 12:35 PM STITCH CLEANER): Chronic, present for two or more years, symptoms controlled with p.r.n. use of albuterol. Continue same. Assessment & Plan (12/31/2022 4:05 PM CDT): She has an albuterol inhaler for occasional use as needed when she is wheezing which is rarely these days once her daughter moved out of the house with her rats. Assessment & Plan (12/12/2021 10:41 AM CDT): Since September, she is had some persistent nasal congestion, postnasal drainage and cough, primarily at night. For awhile she was wheezing. She used her 's inhaler which helped. Today there is no wheezing on exam. We sent in a prescription of her own. She reports that she did have a lot of allergies when younger, and also that her daughter recently got a rat for a PET (January 2021). This may be a factor. Uterine leiomyoma 04/24/2021 Urinary frequency 09/01/2020 Assessment & Plan (12/29/2021 4:02 PM CDT): Pre and postvoid urinary bladder volumes were unremarkable. Notation was made of large uterine fibroids, and her land surveyor assistant says she has a uterus size about equal to a 2-3 month . The fibroids might be pressing on her bladder causing some of her symptoms. The trazodone might help her bladder relax a little bit through its anticholinergic side effects. Assessment & Plan (11/29/2021 4:05 PM CDT): She has daytime urinary frequency every 2-3 hours, as well as nocturia times 4- 5. We will check a urinalysis as well as pre and postvoid urine volumes. Gall stones 08/29/2019 Overview (09/21/2019): Incidentally noted on CT abdomen for diverticulitis, [facility] ER. Assessment & Plan (01/19/2023 1:19 PM STITCH CLEANER): She remains asymptomatic. She took a l iver flush recently which involved a no meat diet for six days followed by not eating for 6 hours and taking a magnesium preparation (Epsom salts) followed by a combination of oil and vinegar. She read about it in a book and plans to repeat it several times as recommended. Assessment & Plan (09/21/2019 1:35 PM CDT): The CT scan at [facility] ER done for diverticulitis also showed gallstones. We will review the report. She has no symptoms in the right upper quadrant. Most likely we can observe these without intervention at this time. If she does get symptoms, appropriate referral will be arranged. Closed fracture of left ankle with routine heali ng 04/04/2019 Overview (12/31/2022): Saw Dr. Jose Miguel Zuñiga Benedict. Assessment & Plan (01/19/2023 1:19 PM STITCH CLEANER): She slipped on some rocks and fractured her left ankle about three years ago. She saw Dr. Zuñiga who managed things with an ankle boot and physical therapy. She did well for awhile but symptoms have recurred. On exam she has a small amount of localized swelling in the left ankle with no tenderness. There is no joint laxity in either joint. Vascular exam is normal. We ordered follow-up x-rays and physical therapy. Consider returning to Dr. Zuñiga depending on how she does. Class 1 obesity due to exces s calories without serious comorbidity with body mass index (BMI) of 30.0 to 30.9 in adult 09/01/1989 Overview (01/03/2024): BMI fluctuates Assessment & Plan (06/05/2024 2:39 PM CDT): Chronic and Stable Diagnosis likely 2/2 excess caloric intake in setting of chronicity of disease History/comorbidity possibly contributing to diagnosis: None Most recent relevant labs reviewed and discussed with patient: Most recent hemoglobin A1c: Lab Results Component Value Date HGBA1C 4.8 09/12/2021 Current therapy (ies): None Current weight & BMI: Wt Readings from Last 1 Encounters: 06/05/24 107.5 kg (237 lb) Body mass index is 31.28 kg/m . Obesity class: 1 Wt Readings from Last 5 Encounters: 06/05/24 107.5 kg (237 lb) 01/03/24 106 kg (233 lb 9.6 oz) 06/28/23 101.9 kg (224 lb 9.6 oz) 01/21/23 100.7 kg (222 lb) 12/31/22 99.9 kg (220 lb 3.2 oz) Today's plan: Medications: Undo no medications initiated for obesity today New lab orders today: None Education provided. Recommendations: diet: recommend heart healthy diet including balanced diet of proteins, green leafy vegetables, moderate carbohydrate and dairy intake, recommend regular exercise. AHA recommends at least 30 minutes daily of elevated heart rate above 130 beats per minute (bpm), importance of maintaining regular sleep schedule , and importance of managing stress levels as stress can negatively affect physiological health if not controlled. Total time spent on obesity counselin minutes Assessment & Plan (01/07/2024 12:35 PM STITCH CLEANER): New problem, previously was in an overweight category for many years. BMI fluctuates right at the obese threshold. We encouraged attention to her diet. Assessment & Plan (09/21/2019 1:35 PM CDT): She has lost a few lb recently. We recommended continued attention to diet and some additional weight loss. Assessment & Plan (06/09/2018 1:28 PM CDT): She has lost a few lb lately on a keto diet. She continues to work on this. Hopefully over time we will see additional improvement. We are checking some follow-up labs to determine if there are other metabolic effects of obesity. We are also screening for hypothyroidism. Return annually or sooner as needed. Assessment & Plan (04/10/2017 3:55 PM STITCH CLEANER): Weight loss would help her avoid future problems with her back, and reduce risk of other medical conditions. She will be working on this. We discussed ideal body weight and body mass index goals. Resolved Problems Problem Noted Date Diagnosed Date Resolved Date Subacute cough 06/28/2023 06/05/2024 Assessment & Plan (06/30/2023 6:38 AM CDT): She came down with a respiratory infection earlier this week. She denies fever, but she has a central burning chest discomfort and paroxysmal coughing. She brings up yellow phlegm. There is no hemoptysis. Lungs are clear. She has a cough variant asthma for which he uses albuterol as needed. She also has been taking Alavert which helps a little bit. Due to the history of asthma, we will give her doxycycline for possible acute exacerbation. If not improving over the next week, or if she develops a fever, call for follow-up. Upper respiratory infection 06/24/2023 01/03/2024 Overview (01/03/2024): Strep swab negative, patient declined COVID and flu testing. Assessment & Plan (06/30/2023 6:39 AM CDT): In addition to the cough, she has a sore throat. 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 We checked for strep which is negative. She declined COVID and flu screening. We will monitor clinically. Upper back pain on left side 09/01/2021 06/05/2024 Overview (01/07/2024): Gets periodic massages. Assessment & Plan (01/07/2024 12:48 PM STITCH CLEANER): Newly described chronic/intermittent problem, present on and off for about 2 years. She has sharp intermittent pain in the left upper trapezius region. She denies any known injuries. She gets periodic massages which lately have not helped much. 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 We recommended evaluating with plain x-rays and referring to Physical therapy for treatment, but she declines at this time. Will monitor clinically. Viral URI 07/05/2021 12/30/2022 Overview (12/30/2022): Saw JOSE A Rey, symptoms managed. Assessment & Plan (07/05/2021 3:37 PM CDT): Patient presents with sinus congestion, ear fullness, headache and scratchy throat since Saturday. She reports recent ill contacts at work and her daughter. She has exam findings suggestive or viral URI. She was tested for flu and covid and was negative. She was encouraged to rest, increase fluids, use sinus rinses, Mucinex and flonase. She is to call or return with any worsening or persistent symptoms. BMI 32.0-32.9,adult 10/02/2019 12/31/19 23 Overview (12/30/2022): Lost weight -> overweight. Diverticulitis 08/29/2019 01/03/2024 Overview (01/03/2024): Follow-up colonoscopy and GI appointment unremarkable. Assessment & Plan (12/02/2019 2:27 PM CDT): Recent colonoscopy was unremarkable. No recent symptoms of diverticulitis. No concerns or complaints. Discussed again importance of high fiber diet. She is to go on low fiber/low fat, liquid diet if diverticulitis symptoms occur and contact us. Pt verbalized understanding. Assessment & Plan (10/02/2019 1:48 PM CDT): First episode occurred at end of August. She received one dose of IV abx in ER and sent home with oral abx. She is doing well and no issues since. We discussed diverticulosis vs. Diverticulitis. She was instructed to increase fiber intake. If she has symptoms of diverticulitis reoccur, she was instructed to stop the fiber and switch to low fat, low fiber liquid diet and call our office. If symptoms are severe, she should go to ER. She verbalized understanding. Last colonoscopy was about 7 years ago. Will schedule this at least 6 weeks after resolution of her diverticulitis. Assessment & Plan (10/03/2019 1:52 PM CDT): She was in the [facility] ER recently with a bout of diverticulitis. Symptoms included crampy abdominal pain. She was placed on antibiotics and has done well. She has no residual symptoms. We will review those records when they become available and get back with the patient on any needed early follow-up. She had a colonoscopy about 7 years ago due to blood in the stools at the time of her annual woman's health exam. The colonoscopy was basically normal at that time. It may be advisable for her to have a follow-up. We will consult Dr. Mccloud for his opinion and advice. Assessment & Plan (09/01/2019 4:10 PM CDT): Patient was seen in office today after being seen at [facility] ER and being diagnosed and treated for acute diverticulitis. She is currently on Augmentin and reports pain has improved, she still has some mild LLQ tenderness, but no longer has the sharp pain. She has been keeping diet bland and will continue to do so. She will complete antibiotic and call if symptoms do not resolve. We will attempt to obtain reports from [facility] of her CT and lab work for further review. Poison sergei dermatitis 06/21/20192019 Overview (09/21/2019): See office note for details. Assessment & Plan (07/01/2019 11:26 AM CDT): Unresolved s/p medrol dose pack. She has areas that appear to be crusting, but continued linear rash with patchy erythematous appearance. We will prescribe further steroids at higher dose. She was encouraged to avoid scratching. She can continue Benadryl. She was also encouraged to use calamine and oatmeal baths to help with itching. She will call next week with an update or sooner if symptoms worsen. Acute midline low back pain with right-sided sciatica 03/22/2017 06/08/2018 Overview (06/08/2018): Resolved with physical therapy and NSAIDS. Assessment & Plan (04/10/2017 3:56 PM STITCH CLEANER): She had a very good response to nonsteroidals and physical therapy. Pain is resolved at this point. She can follow up as needed for this problem. She will continue her back program at home as recommended by Physical therapy. Assessment & Plan (04/15/2017 9:49 AM STITCH CLEANER): About four months ago at work, she fell off her office chair onto her buttocks. She had some lower back pain at the time, but got over it without any specific intervention. Starting last Saturday, without any re-injury, she started to have right lower sacroiliac pain radiating into her right leg. Certain twisting movements especially getting into and out of her car made it much worse. She has no alarm symptoms such as fever, urinary retention or incontinence, or weakness. She has been taking one Aleve 2 or 3 times a day. She went to see a massage therapist who gave her a TENS unit which has been helping. Exam is unremarkable, essentially normal. There is very mild straight leg raise findings on the right side, but strength and reflexes are all normal. We will refer her to physical therapy. We will have her take Aleve two pills twice a day, and supplement that with a little tramadol as needed. Follow-up in two weeks or sooner as needed. Suspected sleep apnea 09/01/20162023 Overview (12/30/2022): Suspected. Snores, feels unrested when she wakes up. Sleep study negative, but sleep efficiency poor. Assessment & Plan (12/30/2021 7:55 PM CDT): She had a sleep study yesterday which [...] her stay asleep, risks of medication discussed. Assessment & Plan (11/29/2021 4:05 PM CDT): We suspect that she has obstructive sleep apnea. She snores. She feels unrested when she wakes up. We will request a sleep study. Elevated blood pressure 04/13/201609/2017 Overview (06/08/2016): Elevated blood pressure Borderline diabetes 05/01/2013 10/01/19 20 Overview (06/08/2018): HGBA1C 5.8 in 2014. Assessment & Plan (09/21/2019 1:32 PM CDT): She has had some borderline values for blood sugar and hemoglobin A1c in the past, but more recent values have been normal. She had labs recently at [facility], so we will check those when available and get back with her on the results. Follow-up annually, or sooner if needed. Assessment & Plan (06/09/2018 1:25 PM CDT): She has had some borderline hemoglobin A1cs in the past. She is trying to lose weight. She is on a keto diet. We will check a follow-up comprehensive metabolic panel and consider additional intervention as needed. H/O colonoscopy 05/07/2012 06/08/2018 Overview (06/08/2018): For blood in stool, normal including biopsy. Immunizations Immunization Administration Dates Next Due Flucelvax Influenza Quad 11/13/2019 Influenza, Quadrivalent, Isabela l Culture-based MDCK, Preservative Free, Antibiotic Free, Intramuscular 11/15/2021 Influenza, Quadrivalent, Spl it, Intramuscular 04/13/2016 Influenza, Quadrivalent, Spl it, Preservative Free, Intramuscular 12/30/2018,12/04/2017 Influenza, Trivalent, IM (MDV) 11/08/2020 Influenza, Unspecified 01/03/2024(Deferr ed: Patient Refused),12/24/2022(Deferred: Patient Refused),12/30/2018 Tdap 11/29/2021,10/18/2011 Social History Tobacco Use Types Packs/Day Years [...] on file Legal Sex Female 7:58 PM STITCH CLEANER Gender Identity Female 09/27/2020 8:41 AM CDT Sexual Orientation Straight 09/27/2020 8: 41 AM CDT Last Filed Vital Signs Vital Sign Reading Time Taken Comments Blood Pressure 110/78 06/05/2024 2:33 PM CDT Pulse 75 06/05/2024 2:33 PM CDT Temperature 36.7 C (98 F) 06/05/2024 2:33 PM CDT Respiratory Rate 16 06/05/2024 2:33 PM CDT Oxygen Saturation 99% 06/05/2024 2:33 PM CDT Inhaled Oxygen Concentration - - Weight 107.5 kg (237 lb) 06/05/2024 2:33 PM CDT Height 185.4 cm (6' 0.99 ) 06/05/2024 2:33 PM CD T Body Mass Index 31.28 06/05/2024 2:33 PM CDT Plan of Treatment Not on file Procedures Procedure Name Priority Date/Time Associated Diagnosis Comments DEXA AXIAL SKELETON BONE DENSITY 1 OR MORE SITES Schedule Routine, Read Routine (OP Routine) 05/13/2024 8:51 AM CDT Post-menopause SCREENING MAMMOGRAM BILATERAL W JACOB Schedule Routine, Read Routine (OP Routine) 05/13/2024 8:25 AM CDT Screening mammogram, encounter for SCAN - RADIOLOGY/IMAGING 05/05/2024 THINPREP DIRECTOR OF ACADEMIC SUPPORT PAP (IMAGE GUIDED) LIQUID-BASED PREP Routine 10/23/2021 4:18 PM CDT HEPATITIS C ANTIBODY Routine 06/21/2020 11:55 AM CDT Screening examination for STD (sexually transmitted disease) COLONOSCOPY 11/18/2019 9:22 AM CDT from Last 3 Months or Most Recently Relevant to Health Maintenance Results * Dexa Axial Skeleton Bone Density 1 or 2 Site (05/13/2024 8:51 AM CDT) Anatomical Region Laterality Modality Body N/A Other 05/14/2024 3:13 PM CDT Narrative 05/14/2024 3:15 PM CDT EXAM DESCRIPTION: DEXA AXIAL SKELETON BONE DENSITY 1 OR MORE SITES REASON FOR STUDY: 53 y/o year old F with given history of: Z78.0 Post menopausal Osteoporosis screening 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 CLINICAL INFORMATION: Current height: 72 inches Maximum height: 73 inches Weight: 233 pounds Risk factors: Postmenopausal, adult fracture, asthma or emphysema COMPARISON: None available FINDINGS: AP LUMBAR SPINE L1-L4: Total BMD is 1.241 g/cm2 T-score is 1.8 LEFT HIP: Total BMD is 0.951 g/cm2 T-score is 0.1 Femoral neck BMD is 0.887 g/cm2 T-score is 0.3 FRAX: FRAX not reported due to T-scores of hip, femoral neck and/or spine being at or above -1.0 (Normal). IMPRESSION: Normal bone mass. REFERENCE: Bone mineral density: T-Score: Normal (T-score above or = -1.0) Low bone mass (T-score between -1.0 and -2.5) replaces the previously used term osteopenia Osteoporosis (T-score = or below -2.5) Z-Score: Within the expected range for age (Z-score above -2.0) Below the expected range for age (Z-score is -2.0 or below) Please see below follow up recommendations. Medical evaluation for secondary causes of low bone mineral density may be appropriate. FRAX is a World Health Organization validated fracture risk assessment tool that calculates a person's 10 year probability of a major osteoporosis related fracture and hip fracture. According to the National Osteoporosis Foundation guidelines, postmenopausal women and men age 50 or older with low bone mass and a 10 year probability of a major osteoporosis related fracture = or greater than 20% or a 10 year probability of a hip fracture = or greater than 3% should be considered for pharmacological treatment for the prevention of osteoporosis. For further information, including treatment recommendations, please refer to the 2019 ISCD Official Positions (http://www.iscd.org) and the NOF's Clinician's Guide to Prevention and Treatment of Osteoporosis (http://www.nof.org/professionals/clinical-guidelines) THIS IS AN ELECTRONICALLY VERIFIED FINAL REPORT 05/14/2024 3:15 PM - Electronically signed by Myron Short M.D. 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 CLINICAL INFORMATION: Current height: 72 inches Maximum height: 73 inches Weight: 233 pounds Risk factors: Postmenopausal, adult fracture, asthma or emphysema COMPARISON: None available FINDINGS: AP LUMBAR SPINE L1-L4: Total BMD is 1.241 g/cm2 T-score is 1.8 LEFT HIP: Total BMD is 0.951 g/cm2 T-score is 0.1 Femoral neck BMD is 0.887 g/cm2 T-score is 0.3 FRAX: FRAX not reported due to T-scores of hip, femoral neck and/or spine beingat or above -1.0 (Normal). IMPRESSION: Normal bone mass. REFERENCE: Bone mineral density: T-Score: Normal (T-score above or = -1.0) Low bone mass (T-score between -1.0 and -2.5) replaces thepreviously used term osteopenia Osteoporosis (T-score = or below -2.5) Z-Score: Within the expected range for age (Z-score above -2.0) Below the expected range for age (Z-score is -2.0 or below) Please see below follow up recommendations. Medical evaluation forsecondary causes of low bone mineral density may be appropriate. FRAX is a World Health Organization validated fracture risk assessmenttool that calculates a person's 10 year probability of a major osteoporosisrelated fracture and hip fracture. According to the National OsteoporosisFoundation guidelines, postmenopausal women and men age 50 or older with low bonemass and a 10 year probability of a major osteoporosis related fracture = or greater than 20% or a 10 year probability of a hip fracture = or greaterthan 3% should be considered for pharmacological treatment for the preventionof osteoporosis. For further information, including treatment recommendations, please referto the 2019 ISCD Official Positions (http://www.iscd.org) and the NOF's Clinician's Guide to Prevention and Treatment of Osteoporosis (http://www.nof.org/professionals/clinical-guidelines) THIS IS AN ELECTRONICALLY VERIFIED FINAL REPORT 05/14/2024 3:15 PM - Electronically signed by Myron Short M.D. MF: [id number] Report ID: [id number] Reading Location: [id number] Mary Crump NP IMG DXA PROCEDURES Final Re sult * Screening Mammogram Bilateral W Jacob (05/13/2024 8:25 AM CDT) Anatomical Region Laterality Modality Breast Bilateral Mammography 05/15/2024 4:17 PM CDT Impressions 05/15/2024 4:17 PM CDT There is no mammographic evidence to suggest malignancy. The patient may continue screening mammography as per ACR guidelines. FINAL ASSESSMENT: BI-RADS Category 1: Negative. Electronically signed by: Angy Fortune M.D. Narrative 05/15/2024 4:17 PM CDT EXAMINATION: BILATERAL SCREENING MAMMOGRAM WITH TOMOGRAPHY HISTORY: Screening. COMPARISON(S): 2021, 2020, and 2019 TECHNIQUE: Full-field 2D images and digital tomosynthesis images were obtained. CAD was utilized. BREAST PARENCHYMAL COMPOSITION: There are scattered areas of fibroglandular density. FINDINGS: There are no suspicious masses. No suspicious calcifications are seen. There is no unexplained architectural distortion. There is no skin thickening seen. There are no mammographically abnormal lymph nodes seen in the axillae or elsewhere. Procedure Note Angy Fortune MD - 05/15/2024 EXAMINATION: BILATERAL SCREENING MAMMOGRAM WITH TOMOGRAPHY HISTORY: Screening. COMPARISON(S): 2021, 2020, and 2019 TECHNIQUE: Full-field 2D images and digital tomosynthesis images were obtained. CAD was utilized. BREAST PARENCHYMAL COMPOSITION: There are scattered areas of fibroglandular density. FINDINGS: There are no suspicious masses. No suspicious calcifications are seen. There is no unexplained architectural distortion. There is no skin thickening seen. There are no mammographically abnormal lymph nodes seen in the axillae or elsewhere. IMPRESSION: There is no mammographic evidence to suggest malignancy. The patient may continue screening mammography as per ACR guidelines. FINAL ASSESSMENT: BI-RADS Category 1: Negative. Electronically signed by: Angy Fortune M.D. us Self Screening Mammogram IMG MAMMO PROCEDURES Fi nal Result * SCAN - RADIOLOGY/IMAGING (05/05/2024) Anatomical Region Laterality Modality Other us Provider Scanning Final Result * ThinPrep Gynecologic Pap Test (Image-guided), Liquid-based Preparation (10/23/2021 4:18 PM CDT) CLINICAL INFORMATION: [facility] [place] Comment:Information not prov ided LMP [facility] [place] Comment:INFORMATION NOT PROV IDED Previous Pap [facility] [address] [facility] Comment:INFORMATION NOT PROV IDED Prev. Bx [facility] [address] [facility] Comment:INFORMATION NOT PROV IDED [facility] Comment:Information not prov ided Pap, specimen adequacy [facility] [address] [facility] Comment: Satisfactory for evaluation. Endocervical/transformation zone component present. Age and/or menstrual status not provided HPV interp [facility] [address] [facility] Comment:Negative for intraep ithelial lesion or malignancy. COMMENTS [facility] [address] [facility] Comment: This Pap test has been evaluated with computer assisted technology. Passenger Train Braker [facility] [address] [facility] Comment: SXO, CT(ASCP) CT Screening Location: [place] [address] [place] [address] Comment [facility] [address] [facility] Comment: EXPLANATORY NOTE: The Pap is a screening test for cervical cancer. It is not a diagnostic test and is subject to false negative and false positive results. It is most reliable when a satisfactory sample, regularly obtained, is submitted with relevant clinical findings and history, and when the Pap result is evaluated along with historic and current clinical information. 10/23/2021 4:18 PM CDT 10/24/2021 11:39 PM CDT Ferny Youngblood MD LAB PATHOLOGY ORDERABLES F inal Result [facility] [address] [place] [address] * Hepatitis C antibody (06/21/2020 11:55 AM CDT) Hep C Ab Nonreactive Nonreactive [facility] Comment: Interpretive Data Nonreactive: Antibodies to HCV not detected. Does NOT exclude the possibility of recent exposure to HCV. Equivocal: Equivocal for HCV antibodies. Supplemental molecular testing will be automatically performed to determine infection status in accordance with current CDC screening recommendations. Reactive: Positive for HCV antibodies. This may represent current or past HCV infection. Supplemental molecular testing will be automatically performed to determine current infection status in accordance with current CDC screening recommendations. Interpretive data was last revised on 2019. Testing performed by: [facility], [address] [place] [address], [place]., [address] Blood specimen (specimen) 06/21/2020 11:55 AM CDT 06/21/2020 4:18 PM CDT us Evangelina Covarrubias SHELL PRESS OPERATOR LAB MICROBIOLOGY - GENERA L ORDERABLES Edited Result - Final [facility] Department [place] [address] * COLONOSCOPY (11/18/2019 9:22 AM CDT) Anatomical Region Laterality Modality Other Narrative Procedure Note Hussain Mccloud MD - 11/18/2019 9:22 AM CDT [facility] Patient Name: Micheline Galvan Procedure Date: 11/18/2019 9:22 AM Date of : 1970 Admit Type: Outpatient Age: 48 Gender: Female Attending MD: Hussain Mccloud M.D. Room: [facility] ENDOSCOPY ROOM 1 Note Status: Finalized Patient Profile: This is a 48 year old female. No family history of colon cancer. Patient had recent episode of acute diverticulitis in August. Colonoscopy forevaluation. Procedure: Colonoscopy Indications: Last colonoscopy: May 2012, Follow-up of diverticulitis Referring MD: Providers: Hussain Mccloud M.D. Impression: - The entire examined colon is normal overall. - Diverticulosis in the sigmoid colon and in the descending colon. - Internal hemorrhoids. - No specimens collected. Recommendation: - Repeat colonoscopy in 10 years for screeningpurposes. Medicines: Monitored Anesthesia Care Complications: No immediate complications. Estimated Blood Loss: Estimated blood loss: none. Procedure: Pre-Anesthesia Assessment: - Prior to the procedure, a History and Physical was performed, and patient medications and allergieswere reviewed. The patient's tolerance of previous anesthesia was also reviewed. The risks and benefitsof the procedure and the sedation options and riskswere discussed with the patient. All questions were answered, and informed consent was obtained. Prior Anticoagulants: The patient has taken no previous anticoagulant or antiplatelet agents. ASA Grade Assessment: II - A patient with mild systemicdisease. After reviewing the risks and benefits, the patientwas deemed in satisfactory condition to undergo the procedure. The benefits, risks and alternatives of theprocedure and sedation were discussed and informed consent was obtained. All questions were answered. Please referto the signed informed consent document in the medical record. The scope was passed under direct vision.The Pediatric Colonoscope PCF-H190L [id number] was introduced through the anus and advanced to the the cecum, identified by appendiceal orifice andileocecal valve. The bowel preparation used was Miralax. The bowel preparation used was bisacodyl tablets. Bowel prep was administered using a split dose. Thequality of the bowel preparation was good. Findings: The perianal and digital rectal examinations were normal. The cecum appeared normal. The colon (entire examined portion) appeared normal overall. Nopolyps and no mass lesions noted. Multiple small and large-mouthed diverticula were found in thesigmoid colon and descending colon. No inflammatory changes noted. Internal hemorrhoids were found during retroflexion. The hemorrhoids were small. Electronically signed by Hussain Mccloud M.D. Hussain Mccloud M.D. 11/18/2019 11:10:58 AM Number of Addenda: 0 Note Initiated On: 11/18/2019 9:22 AM Procedure Code(s): --- Professional --- 83849, Colonoscopy, flexible; diagnostic, including collection of specimen(s) by brushing or washing, when performed (separateprocedure) Diagnosis Code(s): --- Professional --- K64.8, Other hemorrhoids K57.32, Diverticulitis of large intestine without perforation orabscess without bleeding K57.30, Diverticulosis of large intestine without perforation orabscess without bleeding CPT copyright 2017 [employer]. All rights reserved. The codes documented in this report are preliminary and upon braille coder reviewmay be revised to meet current compliance requirements. Recognized by the [employer] for promoting quality in endoscopy Hussain Mccloud MD ENDOSCOPY PROCEDURES Final Result from Last 3 Months or Most Recently Relevant to Health [place] [address] [place] [address] [facility] [place] [address] [employer] CHOICE IN Member Subscriber Plan / Payer (Ef fective 2013-Present) Name:Micheline Galvan Relation to Subscriber:Spouse Name:TASHI GALVAN Date of :1963 (Home) Address: [address] [place] [address] [place] [address] Payer ID:[id number] (NAIC) Group ID:[id number] Type:BC OTHER Address: [place] [id number] [place] [address] [employer] CHO[place] IN [employer] [place] Advance Directives For more information, please contact: [phone] * Full Code (Latest Code Status on File) Date Activated Date Inactivated Comments 11/18/2019 9:03 AM 11/18/2019 3:48 PM Care Teams Geospatial Program Management Officer Relationship Specialty Start Date End Date Tashi Reilly MD [address] [place] [address] PCP - General 06/01/16 Mary Crump, GILBERTO [address] [place] [address] Nurse Practitioner Obstetrics and Gynecology 12/17/23
--- OUTSIDE RECORDS SUMMARY | 2024-07-06 08:31 | XMS_ITS | Encounter Summary ---
Author Organization [facility] Address [address] [place] [address] Phone Care Team Providers Care Commercial Lines Sales Executive Name Role Phone Tashi Reilly MD Primary Care Provider [phone] Ferny Youngblood MD Unavailable [phone] Mary Crump NP Unavailable [phone] Encounter Details Date Type Department Care Team (Late st Contact Info) Description 08/30/2019 Orders Only [facility] [address] [place] [address] Scanning, Provider Social History Tobacco Use Types Packs/Day Years Used Date Smoking Tobacco: Never Smokeless Tobacco: Never Alcohol Use Standard Drinks/Week Comments Yes 0 (1 standard drink = 0.6 oz pur e alcohol) Comments No Sex and Gender Information Value Date Recorded Sex Assigned at Not on file Legal Sex 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 Gender Identity Female 09/27/2020 8:41 AM CDT Sexual Orientation Straight 09/27/2020 8: 41 AM CDT documented as of this encounter Plan of Treatment Not on file documented as of this encounter Procedures Procedure Name Priority Date/Time Associated Diagnosis Comments SCAN - LABS 08/30/2019 documented in this encounter Results * SCAN - LABS (08/30/2019) us Provider Scanning Final Result documented in this encounter Visit Diagnoses Not on filedocumented in this encounter Additional Health Concerns Infection Onset Date Last Indicated Resolved Time COVID: Suspected 07/05/2021 07/05/2021 07/05/2021 3:33 PM CDT documented as of this encounter Care Teams Commercial Lines Sales Executive Relationship Specialty Start Date End Date Tashi Reilly MD [address] [place] [address] PCP - General 06/01/16 Ferny Youngblood MD [address] [place] [address] Water Truck Driver Obstetrics and Gynecology 06/09/18 01/02/24 Mary Crump NP [address] [place] [address] Nurse Practitioner Obstetrics and Gynecology 12/17/23 documented as of this encounter
--- OUTSIDE RECORDS SUMMARY | 2024-07-06 08:31 | XMS_ITS | Clinical Summary ---
Author Organization [facility] B Address [address] [place] [address] Care Team Providers Care Department Store Salesperson Name Role Phone Tashi Reilly MD Primary Care Provider [phone] Mary Crump NP Unavailable [phone] Allergies No known active allergies Medications MAGNESIUM [...] Recommended following up with dentistry or aesthetics WORM FARM LABORER for discussion of masseter Botox, if interested Recommended following up with Orthodontics, may recommend overnight babysitter Briefly discussed anxiety and insomnia possibly contributing [...] 10/02/2021 Assessment & Plan (01/07/2024 12:35 PM UPPER CUTTER MACHINE): Chronic, present for two or more years, [...] made of large uterine fibroids, and her cosmetologist says she has a uterus size about [...] Incidentally noted on CT abdomen for diverticulitis, [facility] ER. Assessment & Plan (01/19/2023 1:19 PM UPPER CUTTER MACHINE): She remains asymptomatic. She took a l [...] 1:35 PM CDT): The CT scan at [facility] ER done for diverticulitis also showed gallstones. We will review the report. She has no symptoms in the right upper quadrant. Most likely we can observe these without intervention at this time. If she does get symptoms, appropriate referral will be arranged. Closed fracture of left ankle with routine heali ng 04/04/2019 Overview (12/31/2022): Saw Dr. Jose Miguel Zuñiga [place]. Assessment & Plan (01/19/2023 1:19 PM UPPER CUTTER MACHINE): She slipped on some rocks and fractured [...] minutes Assessment & Plan (01/07/2024 12:35 PM UPPER CUTTER MACHINE): New problem, previously was in an overweight [...] needed. Assessment & Plan (04/10/2017 3:55 PM UPPER CUTTER MACHINE): Weight loss would help her avoid future [...] massages. Assessment & Plan (01/07/2024 12:48 PM UPPER CUTTER MACHINE): Newly described chronic/intermittent problem, present on and [...] 1:52 PM CDT): She was in the [facility] ER recently with a bout of diverticulitis. [...] in office today after being seen at [facility] ER and being diagnosed and treated for acute diverticulitis. She is currently on Augmentin and reports pain has improved, she still has some mild LLQ tenderness, but no longer has the sharp pain. She has been keeping diet bland and will continue to do so. She will complete antibiotic and call if symptoms do not resolve. We will attempt to obtain reports from [facility] of her CT and lab work for [...] NSAIDS. Assessment & Plan (04/10/2017 3:56 PM UPPER CUTTER MACHINE): She had a very good response to nonsteroidals and physical therapy. Pain is resolved at this point. She can follow up as needed for this problem. She will continue her back program at home as recommended by Physical therapy. Assessment & Plan (04/15/2017 9:49 AM UPPER CUTTER MACHINE): About four months ago at work, she [...] been normal. She had labs recently at [facility], so we will check those when available [...] For blood in stool, normal including biopsy. Encounters Date Type Department Care Team Description 06/10/2024 Telephone [facility] [address] [place] [phone] Tashi Reilly MD 06/05/2024 2:30 PM CDT [facility] [address] [facility] [address] [place] [phone] Mickey Matta NP Tinnitus of both ears (Primary Dx); Bruxism (teeth grinding); Class 1 obesity due to excess calories without serious comorbidity with body mass index (BMI) of 30.0 to 30.9 in adult; Need for hepatitis B screening test 05/16/2024 Results [facility] [address] [address] Tashi Reilly MD 05/13/2024 8:11 AM CDT - 05/13/2024 11:59 PM CDT Hospital Encounter [address] [address] Post-menopause Discharge Disposition: Discharge to home or self care 05/13/2024 8:11 AM CDT - 05/13/2024 11:59 PM CDT Hospital Encounter [address] [address] Screening mammogram, encounter for Discharge Disposition: Discharge to home or self care 05/05/2024 Orders Only [facility] [address] [place] [phone] Scanning, Provider from Last 3 Months Immunizations Immunization Administration Dates Next Due Flucelvax Influenza Quad 11/13/2019 Influenza, Quadrivalent, Isabela l Culture-based MDCK, Preservative Free, Antibiotic Free, Intramuscular 11/15/2021 Influenza, Quadrivalent, Spl it, Intramuscular 04/13/2016 Influenza, Quadrivalent, Spl it, Preservative Free, Intramuscular 12/30/2018,12/04/2017 Influenza, Trivalent, IM (MDV) 11/08/2020 Influenza, Unspecified 01/03/2024(Deferr ed: Patient Refused),12/24/2022(Deferred: Patient Refused),12/30/2018 Tdap 11/29/2021,10/18/2011 Surgical History Surgery Date Site/Laterality Comments FOOT SURGERY 03/04/2015 - 03/03/2016 Right Right foot ganglion cyst removed, details lacking. MAMMOGRAPHY 02/24/2016 Normal, [facility] MAMMOGRAPHY 01/17/2015 Normal, [facility] MAMMOGRAPHY 01/15/2014 Normal, [facility] MAMMOGRAPHY 12/26/2012 Normal, [facility] MAMMOGRAPHY 12/26/2011 Normal, [facility] COLONOSCOPY W/ BIOPSIES 05/07/2012 For blood in stool, normal, Dr. Mccloud, [facility] MAMMOGRAPHY 03/13/2017 Normal. MAMMOGRAPHY 12/15/2018 Bilateral Negative, [facility] COLONOSCOPY 11/18/2019 Post diverticulosis, normal. MAMMOGRAPHY 01/17/2021 Bilateral Negative, [facility] COLPOSCOPY 10/30/2022 N/A Endocervical polyp removed with ring forceps after consent. Minimal bleeding. No remaining polyp noted. Dr. Youngblood, office procedure. Benign endocervical polyp with chronic inflammation. IUD removal due to irritation. MAMMOGRAPHY 05/15/2024 Bilateral Negative, [facility]. Medical History Medical History Date Comments Uterine leiomyoma Fibroid uterus Elevated blood pressure 04/13/2016 Follow u ps normal. H/O colonoscopy 05/07/[address] blood [address] sto ol, normal including biopsy. Acute midline low back pain with right-sided sciatica 03/22/2017 Resolved with physical thera py and NSAIDS. Poison sergei dermatitis 06/21/2019 See office note for details. Diverticulitis 08/2019 Elevated blood sugar 05/01/2013 HGBA1C 5.8 in 2014. Follow up blood sugars normal. Covid-19 03/16/2021 had it, she had similar symptoms, lost sense of smell and taste. Did not test herself. BMI 32.0-32.9,adult 10/02/2019 Lost weight -> overweight. Viral URI 07/05/2021 Saw Honey Escalante, ANISA P, symptoms managed. Diverticulitis 08/29/2019 Follow-up colono scopy and GI appointment unremarkable. Suspected sleep apnea 09/01/2016 Suspected. Snores, feels unrested when she wakes up. Sleep study negative, but sleep efficiency poor. Upper respiratory infection 06/24/2023 Stre p swab negative, patient declined COVID and flu testing. Subacute cough 06/28/2023 Upper back pain on left side 09/01/2021 Get s periodic massages. Family History Medical History Relation Name Comments ADD / ADHD Daughter 1 ADD/ADHD; Depression Daughter 2 Salud Galvan Cancer Father Low grade, deta ils lacking. Parkinsonism Father Alzheimer's disease Maternal Grandfather Adolph Gandhi Alzheimer's Disease; Endometrial cancer Maternal Grandmother C ancer, endometrial; Uterine cancer Maternal Grandmother Dot r, uterine; Asthma Mother CHALO JERNIGAN Asthma; Diabetes Mother CHALO JERNIGAN Diabetes melli tus; /Diabetes mellitus; Hyperlipidemia Mother CHALO JERNIGAN Hyperlipidem ia; Hypertension Paternal Grandfather Gabriel Hypertjerrell nsion; Asthma Sister Tigist Asthma; Relation Name Status Comments Daughter 1 Daughter 2 Salud Galvan Father Maternal Grandfather Adolph Gandhi Maternal Grandmother Mother CHALO JERNIGAN Paternal Grandfather Gabriel Sister Tigist Social History Tobacco Use Types Packs/Day Years [...] on file Legal Sex Female 7:58 PM UPPER CUTTER MACHINE Gender Identity Female 09/27/2020 8:41 AM CDT Sexual Orientation Straight 09/27/2020 8: 41 AM CDT Obstetrics History Para Term AB IAB SAB Ectopic Multiple Livin g Live Births 2 2 2 2 2 Date Outcome GA Total Labor Labor/2nd/3rd Weight Sex Type Anes PTL Fariba A1 A5 Name Clin 04/200 2 Term F Vag-S pont Living 4 Term F Vag-S pont Living Last Filed Vital Signs Vital Sign Reading [...] 06/05/2024 2:33 PM CDT Plan of Treatment Health Maintenance Due Date Last Done Comments Hepatitis B Screening 11/20/1989 Pneumococcal vaccine <65 (1 of 2 - PCV) 11/20/1990 Zoster Vaccine (1 of 2) 11/20/2021 Cervical Cancer Screening 10/23/20222021, 01/25/2021, 09/22/2019, Additional history exists Covid-19 Vaccine (3 - 2023-2 5 season) 2023 05/21/2020, 04/23/2020 Influenza Vaccine (Season Ended) 2024 11/15/2021, 11/08/2020, 11/13/2019, Additional history exists Depression Screening 01/02/2025 01/03/2024, 12/31/2022, 03/26/2022, Additional history exists Regular Well Visit/Exam 18-64 01/02/2025, 12/31/2022, 03/26/2022, Additional history exists Breast Cancer Screening-Mammogram 05/13/2025 05/13/2024, 01/17/2021, 12/18/2019, Additional history exists Colon Cancer Screening-Colonoscopy 11/17/2029 11/18/2019, 05/07/2012, 05/07/2012 DTaP/Tdap/Td Vaccine (3 - Td or Tdap) 11/30/2031 11/29/2021, 10/18/2011 Hepatitis C Screening Completed 06/21/2020 Procedures Procedure Name Priority Date/Time Associated Diagnosis Comments DEXA AXIAL SKELETON BONE DENSITY 1 OR MORE SITES Schedule Routine, Read Routine (OP Routine) 05/13/2024 8:51 AM CDT Post-menopause SCREENING MAMMOGRAM BILATERAL W JACOB Schedule Routine, Read Routine (OP Routine) 05/13/2024 8:25 AM CDT Screening mammogram, encounter for SCAN - RADIOLOGY/IMAGING 05/05/2024 THINPREP WIND DEVELOPMENT DIRECTOR PAP (IMAGE GUIDED) LIQUID-BASED PREP Routine 10/23/2021 [...] history of: Z78.0 Post menopausal Osteoporosis screening Ore Tester/Model: Work Insp[employer] SL (S/N 04325) Facility LSC value of 0.022 for the [...] Myron Short M.D. MF: EDGARDO Report ID: [id number] Reading Location: [id number] Procedure Note Myron Short MD - 05/14/2024 EXAM DESCRIPTION: DEXA AXIAL SKELETON BONE DENSITY 1 OR MORE SITES REASON FOR STUDY: 53 y/o year old F with given history of: Z78.0 Post menopausal Osteoporosis screening Ore Tester/Model: [employer] SL (S/N 16906) Facility LSC value of 0.022 for the [...] Myron Short M.D. MF: EDGARDO Report ID: [id number] Reading Location: [id number] us Mary Crump WORM FARM LABORER IMG DXA PROCEDURES Final Re sult * [...] Negative. Electronically signed by: Angy Fortune M.D. Self Screening Mammogram IMG MAMMO PROCEDURES Fi nal Result * SCAN - RADIOLOGY/IMAGING (05/05/2024) Anatomical Region Laterality Modality Other us Provider Scanning Final Result * ThinPrep Gynecologic Pap Test (Image-guided), Liquid-based Preparation (10/23/2021 4:18 PM CDT) CLINICAL INFORMATION: [facility] Comment:Information not prov ided LMP [facility] Comment:INFORMATION NOT PROV IDED Previous Pap [facility] Comment:INFORMATION NOT PROV IDED Prev. Bx [facility] Comment:INFORMATION NOT PROV IDED SOURCE: [facility] Comment:Information not prov ided Pap, specimen adequacy [facility] Comment: Satisfactory for evaluation. Endocervical/transformation zone component present. Age and/or menstrual status not provided HPV interp [facility] Comment:Negative for intraep ithelial lesion or malignancy. COMMENTS [facility] Comment: This Pap test has been evaluated with computer assisted technology. Front Office Secretary Que [facility] Comment: SXO, CT(ASCP) CT Screening Location: [place] [address] [place] [address] Comment [facility] Comment: EXPLANATORY NOTE: The Pap is a [...] MD LAB PATHOLOGY ORDERABLES F inal Result [facility] [address] [phone] * Hepatitis C antibody (06/21/2020 11:55 AM [...] last revised on 2019. Testing performed by: [facility], [address] [place] [address], [place]., [address] Blood specimen (specimen) 06/21/2020 11:55 AM CDT 06/21/2020 4:18 PM CDT us Evangelina Covarrubias NP LAB MICROBIOLOGY - [facility] L ORDERABLES Edited Result - Final [facility]PLACED BY [facility] [place]) 1 [facility] Department of Laboratories [place], [place] [id number] * COLONOSCOPY (11/18/2019 9:22 AM CDT) Anatomical Region Laterality Modality Other Narrative Procedure Note Hussain Mccloud MD - 11/18/2019 9:22 AM CDT [facility] Patient Name: Micheline Galvan Procedure Date: 11/18/2019 9:22 AM Date of : 1970 Admit Type: Outpatient Age: 48 Gender: Female Attending MD: Hussain Mccloud M.D. Room: [facility]PLACED BY [facility] ENDOSCOPY ROOM 1 Note Status: Finalized Patient [...] passed under direct vision.The Pediatric Colonoscope [id number]-[id number] was introduced through the anus and advanced [...] 9:22 AM Procedure Code(s): --- Professional --- 00522, Colonoscopy, flexible; diagnostic, including collection of specimen(s) by brushing or washing, when performed (separateprocedure) Diagnosis Code(s): --- Professional --- K64.8, Other hemorrhoids K57.32, Diverticulitis of large intestine without perforation orabscess without bleeding K57.30, Diverticulosis of large intestine without perforation orabscess without bleeding CPT copyright 2017 [employer]. All rights reserved. The codes documented in this report are preliminary and upon language path reviewmay be revised to meet current compliance requirements. Recognized by the [employer] [employer] for promoting quality in endoscopy Hussain Mccloud MD ENDOSCOPY PROCEDURES Final Result from Last 3 Months or Most Recently Relevant to Health Maintenance [place] [address] [facility] [place] [employer] [place] [employer] [place] [address] [employer] [place] Advance Directives For more information, please contact: [phone] * Full Code (Latest Code Status on File) Date Activated Date Inactivated Comments 11/18/2019 9:03 AM 11/18/2019 3:48 PM Care Teams Department Store Salesperson Relationship Specialty Start Date End Date Tashi Reilly MD [address] [place] [address] PCP - General 06/01/16 Mary Crump NP [address] [place] [address] Nurse Practitioner Obstetrics and Gynecology 12/17/23
--- OUTSIDE RECORDS SUMMARY | 2024-07-06 08:31 | XMS_ITS | Encounter Summary ---
Author Organization [facility] Address [address] [place] [address] Care Team Providers Care Manager Nursing Home Name Role Phone Tashi Reilly MD Primary Care Provider [phone] Encounter Details Date Type Department Care Team (Late st Contact Info) Description 06/03/2023 Telephone [facility] - Centralized Scheduling [address] [place] [phone] Chino Nguyen MD [address] [place] [address] Social History Tobacco Use Types Packs/Day Years Used Date Smoking Tobacco: Never Passive Smoke Exposure: Never Smokeless Tobacco: Never Alcohol Use Standard Drinks/Week Comments Yes 0 (1 standard drink = 0.6 oz pur e alcohol) PHQ-2 Answer Date Recorded Patient Health Questionnaire-2 Score 0 03/17/2023 Comments Unknown Sex and Gender Information Value Date Recorded Sex Assigned at Not on file Legal Sex Female 6:27 AM MATERIAL SPREADER Gender Identity Not on file Sexual Orientation Not on file documented as of this encounter Plan of Treatment Not on file documented as of this encounter Visit Diagnoses Not on filedocumented in this encounter Care Teams Manager Nursing Home Relationship Specialty Start Date End Date Tashi Reilly MD [address] [place] [phone] PCP - General Infectious Disease 02/14/23 documented as of this encounter
--- OUTSIDE RECORDS SUMMARY | 2024-07-06 08:31 | XMS_ITS | Encounter Summary ---
Author Organization [facility] Healthcare Address [address] [place] [address] Care Team Providers Care Animal Shelter Worker Name Role Phone Tashi Reilly MD Primary Care Provider [phone] Mary Crump DISPENSING OPERATOR Unavailable [phone] Encounter Details Date Type Department Care Team (Late st Contact Info) Description 02/04/2024 Orders Only [facility] [address] [place] [address] Scanning, Provider Social History Tobacco [...] on file Legal Sex Female 7:58 PM FAMILY EDUCATOR Gender Identity Female 09/27/2020 8:41 AM CDT Sexual Orientation Straight 09/27/2020 8: 41 AM CDT documented as of this encounter Plan of Treatment Not on file documented as of this encounter Procedures Procedure Name Priority Date/Time Associated Diagnosis Comments SCAN - RADIOLOGY/IMAGING 02/04/2024 documented in this encounter Results * SCAN - RADIOLOGY/IMAGING (02/04/2024) Anatomical Region Laterality Modality Other us Provider Scanning Final Result documented in this encounter Visit Diagnoses Not on filedocumented in this encounter Care Teams Animal Shelter Worker Relationship Specialty Start Date End Date Tashi Reilly MD [address] [place] [address] PCP - General 06/01/16 Mary Crump NP [address] [place] [address] Nurse Practitioner Obstetrics and Gynecology 12/17/23 documented as of this encounter
--- OUTSIDE RECORDS SUMMARY | 2024-07-06 08:31 | XMS_ITS | Encounter Summary ---
Author Organization [facility] Healthcare Address [address] [place] [address] Care Team Providers Care Silk Conditioner Name Role Phone Tashi Reilly MD Primary Care Provider [phone] Mary Crump NURSING COORDINATOR Unavailable [phone] Encounter Details Date Type Department Care Team (Late st Contact Info) Description 05/16/2024 Results Follow-Up [facility] [address] [place] [phone] Tashi Reilly MD [address] [facility] [address] [place] [address] Social History Tobacco Use Types Packs/Day Years [...] on file Legal Sex Female 7:58 PM TRANSFER CAR OPERATOR Gender Identity Female 09/27/2020 8:41 AM CDT Sexual Orientation Straight 09/27/2020 8: 41 AM CDT documented as of this encounter Plan of Treatment Not on file documented as of this encounter Visit Diagnoses Not on filedocumented in this encounter Care Teams Silk Conditioner Relationship Specialty Start Date End Date Tashi Reilly MD [address] [place] [address] PCP - General 06/01/16 Mary Crump NP [address] [place] [address] Nurse Practitioner Obstetrics and Gynecology 12/17/23 documented as of this encounter
--- OUTSIDE RECORDS SUMMARY | 2024-07-06 08:31 | XMS_ITS | Encounter Summary ---
Author Organization [facility] Healthcare Address [address] [place] [address] Care Team Providers Care Non Profit Financial Controller Name Role Phone Tashi Reilly MD Primary Care Provider [phone] Mary Crump HUMAN SERVICES WORKER Unavailable [phone] Encounter Details Date Type Department Care Team (Late st Contact Info) Description 05/05/2024 Orders Only [facility] [address] [place] [address] Scanning, Provider Social History Tobacco [...] on file Legal Sex Female 7:58 PM NATURAL SCIENCE MANAGER Gender Identity Female 09/27/2020 8:41 AM CDT Sexual Orientation Straight 09/27/2020 8: 41 AM CDT documented as of this encounter Plan of Treatment Not on file documented as of this encounter Procedures Procedure Name Priority Date/Time Associated Diagnosis Comments SCAN - RADIOLOGY/IMAGING 05/05/2024 documented in this encounter Results * SCAN - RADIOLOGY/IMAGING (05/05/2024) Anatomical Region Laterality Modality Other us Provider Scanning Final Result documented in this encounter Visit Diagnoses Not on filedocumented in this encounter Care Teams Non Profit Financial Controller Relationship Specialty Start Date End Date Tashi Reilly MD [address] [place] [address] PCP - General 06/01/16 Mary Crump NP [address] [place] [address] Nurse Practitioner Obstetrics and Gynecology 12/17/23 documented as of this encounter
== END 2024-07-06 08:20 | disposition home or self-care (01) ==
LOC: ANHAUDASC 08:20
PROVIDERS: PCP Internal Medicine Infectious Disease; Visit Provider Otolaryngology
DX: H93.11 Tinnitus, right ear (principal); H90.41 Sensorineural hearing loss, unilateral, right ear, with unrestricted hearing on the contralateral side
CPT/HCPCS: 92557; 92567